=== PATIENT | female | born 1975 | race Caucasian/White ===

== ENCOUNTER 2017-09-13 05:29 | Inpatient (IN) | payer OTHER ==
[~2017-09-13] VITALS: Ht 170.2 cm; Wt 108.9 kg
--- NOTE | 2017-09-13 05:49 | ED GI/GU/ABDOMINAL COMPLAINT ---
History of Present Illness General Chief Complaint: Abdominal Pain/Flank Pain Stated Complaint: ABD PAIN X FEW WEEKS Source: patient Exam Limitations: no limitations Reconcile Medications No Known Home Medications Triage Note: PT REPORTS LOWER ABD PAIN FOR THE PAST WEEK. PT DENIES V/D BUT REPORTS NAUSEA THIS MORNING. PT STATES SHE HASNT HAD A NORMAL BM IN ABOUT A WEEK, " I WENT ALITTLE YESTERDAY". Triage Nurses Notes Reviewed? yes ? n Is pt currently ? No Onset: Gradual Duration: day(s):, waxing and waning Timing: recent history Quality/Severity: lower abdominal cramping and sharp pain Location: left lower quadrant, right lower quadrant Radiation: no radiation Activities at Onset: none Prior Abdominal Problems: none Modifying Factors: Worsens With: palpation. Associated Symptoms: abdominal pain, nausea/vomiting HPI: 42 yo woman presents with 7 days right and left lower quadrant pain, intermittent and fluctuating, associated with mild nausea, without vomiting, diarrhea, dysuria, vaginal discharge. She is otherwise well. (Aden STAPLES,Angel Luis Patel) Vital Signs & Intake/Output Vital Signs & Intake/Output Vital Signs Date Time Temp Pulse Resp B/P B/P Pulse O2 O2 Flow FiO2 Mean Ox Delivery Rate 09/14 2332 99.6 09/14 2328 99.6 09/14 2229 101.1 09/14 2207 101.1 99 20 140/70 93 09/14 1647 100.4 79 18 120/78 98 Room Air 09/14 1444 99.7 98 20 100/60 95 Room Air 09/14 0552 99.6 78 20 120/82 96 Room Air ED Intake and Output 09/15 0000 09/14 1200 Intake Total 1180 600 Output Total Balance 1180 600 Intake, Oral 1180 600 Number 3 Bowel Movements Allergies Coded Allergies: oxycodone (NAUSEA 09/13/17) (Donovan Ruano DO) Past History Travel History Traveled to [place] past 21 day No Medical History Any Pertinent Medical History? 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 No (Aden STAPLES,Angel Luis Patel) Review of Systems Review of Systems Constitutional: Reports: no symptoms. EENTM: Reports: no symptoms. Respiratory: Reports: no symptoms. Cardiovascular: Reports: no symptoms. GI: Reports: no symptoms. Genitourinary: Reports: no symptoms. Musculoskeletal: Reports: no symptoms. Skin: Reports: no symptoms. Neurological/Psychological: Reports: no symptoms. Hematologic/Endocrine: Reports: no symptoms. Immunologic/Allergic: Reports: no symptoms. All Other Systems: Reviewed and Negative (Angel Luis Samaniego MD) Physical Exam Physical Exam General Appearance: well developed/nourished, mild distress Head: atraumatic, normal appearance Eyes: Bilateral: normal appearance. Ears, Nose, Throat, Mouth: hearing grossly normal, moist mucous membrane Neck: normal inspection, supple, full range of motion Respiratory: normal breath sounds, chest non-tender, no respiratory distress, quiet respiration, lungs clear Cardiovascular: regular rate/rhythm Gastrointestinal: normal bowel sounds, soft, right and left lower quadrant tenderness to palpation. no rebound. no guarding. Back: normal inspection Extremities: normal range of motion Neurologic/Psych: no motor/sensory deficits, awake, alert, oriented x 3 Skin: intact, normal color, warm/dry (Aden STAPLES,Angel Luis Patel) Core Measures ACS in differential dx? No Sepsis Present: No Sepsis Focused Exam Completed? Yes (Donovan Ruano DO) Progress Differential Diagnosis: diverticulitis vs other. Initial ED EKG: nsr, inferior q waves. (Aden STAPLES,Angel Luis Patel) Plan of Care: Orders Procedure Date/time Status Nothing by Mouth 09/15 B Active CBC WITHOUT DIFFERENTIAL 09/15 0600 Active Regular Diet 09/14 D Complete PATHOLOGY SPECIMEN 09/14 1545 Active BLOOD CULTURE 09/14 1238 Active CANCER ANTIGEN 09/14 0600 Active Lab Add-on Test 09/14 UNK Active Diet Message 09/14 UNK Active Current Medications Sig/Leonel Start time Last Medication Dose Stop Time Status Admin Sodium Chloride 1,000 ML Q20H 09/15 0000 AC 09/14 (Half Normal Saline) 09/15 1959 2316 Acetaminophen 650 MG Q6P PRN 09/14 2230 AC 09/14 (Tylenol) 2229 Morphine Sulfate 2 MG Q4P PRN 09/13 1915 AC 09/14 (MORPHINE SULFATE) 1643 Dicyclomine HCl 20 MG 4 TIMES/DAY PRN 09/13 1745 AC (Bentyl) Ibuprofen 600 MG Q6P PRN 09/13 1345 AC 09/14 (Motrin) 2022 Laboratory Tests 09/14/17 0745: Anion Gap 11, Estimated GFR > 60, BUN/Creatinine Ratio 8.8, CBC w Diff NO MAN DIFF REQ, RBC 4.28, MCV 85.5, MCH 28.3, MCHC 33.0, RDW 15.0 H, MPV 9.3, Gran % 75.2, Lymphocytes % 20.8, Monocytes % 3.8, Eosinophils % 0.1, Basophils % 0.1, Absolute Granulocytes 7.1 H, Absolute Lymphocytes 2.0, Absolute Monocytes 0.4, Absolute Eosinophils 0, Absolute Basophils 0 09/14/17 0600: Carcinoembryonic Ag 2.0, CA 125 Antigen Pending Microbiology 09/14 2214 BLOOD: Blood Culture - CAN Cancelled: Cancelled via OE: Per Decision 09/14 221 BLOOD: Blood Culture - CAN Cancelled: Cancelled via OE: Per Decision 09/14 1655 BLOOD: Blood Culture - RECD 09/14 1254 BLOOD: Blood Culture - RECD Comments: I assumed care of this patient at the time of shift change from Dr. Samaniego. At that time, we were awaiting CT scan results. The patient's CT showed abnormalities in the right lower quadrant as outlined separately, as well as uterine enlargement. I spoke with Dr. Goldstein from surgery who recommended pelvic ultrasound and both GI and gynecology consultation given that he was not fully concerned that the appendix was the etiology. Ultrasound showed a 4.3 cm endometrial stripe, raising concern for endometrial malignancy versus other pathology. I discussed this with Dr. Navarro from gynecology who agreed the patient will need a D&C and histology. I finally spoke with Dr. Arias from GI who stated the patient will need a colonoscopy within the next 48 hours. The patient was uncomfortable returning home so she was hospitalized for continuation of this workup. Hemodynamically stable at the time of hospitalization. (Donovan Ruano DO) Departure Departure Condition: Stable Referrals: Deep STAPLES,Tomas Bonilla (PCP/Family) Departure Forms: Customer Survey General Discharge Information Prescriptions: Current Visit Scripts No Known Home Medications PA/KILN TRANSFER OPERATOR Co-Sign Statement Statement: ED Attending supervision documentation- [] I saw and evaluated the patient. I have also reviewed all the pertinent lab results and diagnostic results. I agree with the findings and the plan of care as documented in the PA's/KILN TRANSFER OPERATOR's documentation. [] I have reviewed the ED Record and agree with the PA's/KILN TRANSFER OPERATOR's documentation. [] Additions or exceptions (if any) to the PAs/KILN TRANSFER OPERATOR's note and plan are summarized below: [] (Aden STAPLES,Angel Luis Patel) Departure Disposition: STILL A PATIENT Clinical Impression Primary Impression: Abdominal mass Qualifiers: Abdominal location: right lower quadrant Qualified Code: R19.03 - Right lower quadrant abdominal swelling, mass and lump Admission Note Spoke With: Ang Sterling MD Documentation of Exam: Documentation of any treatments & extenuating circumstances including Concerns Regarding Discharge (functional status, medication knowledge or non-compliance, living conditions, etc.) that warrant an admission rather than observation: Patient's underlying medical condition and has not been reliably determined. She has consultation is pending from [facility] urology, obstetrics, and surgery for possible acute intra-abdominal pathology versus malignancy versus other possibilities. The patient's pain was refractory to several dosages of intravenous analgesics here in the ED and thus I feel that hospitalization is warranted over continuation of the workup in the outpatient setting which could inappropriately delay care. Hospitalized in hemodynamically stable condition for further workup. (Donovan Ruano DO)
[2017-09-13 06:16] LABS: ABSOLUTE BASOPHIL COUNT 0 /CUMM (0.0-0.2); ABSOLUTE EOSINOPHIL COUNT 0.1 /CUMM (0.0-0.7); ABSOLUTE GRANULOCYTE CT 5.9 /CUMM (1.4-6.5); ABSOLUTE LYMPH COUNT 2.7 /CUMM (1.2-3.4); ABSOLUTE MONOCYTE COUNT 0.4 /CUMM (0.10-0.60); BASOPHIL % 0.4 % (0.0-2.0); EOSINOPHIL % 1.1 % (0-5); GRANULOCYTE % 65.2 % (42.2-75.2); MEAN CORPUSCULAR HGB 28.1 PG (27.0-31.0); MEAN CORPUSCULAR VOLUME 84.9 FL (81.0-99.0); MEAN PLATELET VOLUME 8.9 FL (7.4-10.4); PLATELET COUNT 341 /CUMM (130-400); RBC DISTRIBUTION WIDTH 14.8 % (11.5-14.5); RED BLOOD CELL CT 4.94 /CUMM (4.20-5.40); WHITE BLOOD CELL COUNT 9.1 /CUMM (4.8-10.8)
--- NOTE | 2017-09-13 07:38 | CT SCAN REPORT ---
EXAMINATION: CT ABDOMEN AND PELVIS WITHOUT CONTRAST CLINICAL INFORMATION: Lower quadrant pain COMPARISON: CT abdomen and pelvis most recent prior dated 05/06/2007 TECHNIQUE: Multidetector volumetric imaging was performed from the superior aspect of the liver through the pubic symphysis. Sagittal and coronal reformatted images were obtained on the technologist's workstation. DLP: 1056.52 mGy-cm FINDINGS: LUNG BASES: The visualized lung bases are unremarkable. Epicardiac lymph nodes noted in the right epicardiac fat. Larger lymph node measures 0.8 cm in short axis (series 2 image 15) LIVER, GALLBLADDER, AND BILIARY TREE: No focal hepatic abnormality on the noncontrast images. Status post cholecystectomy. No gross biliary ductal dilatation. PANCREAS: Unremarkable. SPLEEN: Unremarkable. ADRENAL GLANDS: Unremarkable. KIDNEYS AND URETERS: The kidneys are normal in size, shape, and attenuation. Slightly malrotated left kidney. No hydronephrosis, hydroureter, or calculi seen. No perinephric stranding. BLADDER: Unremarkable. GASTROINTESTINAL TRACT: Abnormal low-attenuation mass with internal peripheral calcification measuring approximately 4.3 x 3.6 x 4.3 cm is noted closely approximated to the somewhat prominent appendix. There is soft tissue stranding surrounding the lesion and the adjacent prominent appendix. Nonobstructive bowel gas pattern. This abnormal soft tissue mass was not seen on the prior examination. ABDOMINAL WALL: No significant hernia is appreciated. LYMPH NODES: Normal. VASCULAR: Unremarkable. PELVIC VISCERA: Enlarged uterus measuring 15.3 x 11 x 12 cm. This represents an interval change since CT scan dated 05/06/2007. Unremarkable left ovary. Right ovary likely abutting the body of the uterus. Assessment is more limited. Stranding and trace fluid along the anteroinferior aspect of the uterus. OSSEOUS STRUCTURES: No acute osseous abnormality. Mild degenerative changes noted in the spine. IMPRESSION: 1. Mildly prominent appendix with adjacent slightly low attenuation complex mass with internal peripherally located calcification measuring approximately 4.3 x 3.6 x 4.3 cm. Stranding and edema surrounding the mass and adjacent slightly prominent appendix. Differential possibility includes appendiceal mucocele. Stranding of the surrounding fat may be secondary to mucocele infiltration or associated adjacent appendicitis. Clinical and laboratory correlation recommended. 2. Enlarged uterus. Adjacent trace fluid and edema. CAB DRIVER correlation and pelvic ultrasound recommended. Findings were discussed with Dr. Ruano at 7:30 AM on 09/13/2017.
--- NOTE | 2017-09-13 09:55 | ULTRASOUND REPORT ---
EXAMINATION: ULTRASOUND OF THE PELVIS CLINICAL INFORMATION: Uterine mass. Pelvic pain. Patient states long heavy periods. History of D\T\C in the past. Family history of ovarian cancer. COMPARISON: CT scan of the abdomen and pelvis dated 09/13/2017 and 05/06/2007. TECHNIQUE: Transabdominal and transvaginal pelvic ultrasound. A transvaginal study was performed in addition to the transabdominal study which did not yield an adequate examination of the uterus and ovaries due to superimposed distended gas-filled loops of bowel. FINDINGS: Uterus: The uterus is anteverted and enlarged, measuring approximately 14.8 x 10.1 x 12.4 cm. The endometrial stripe thickness is abnormal, measuring up to 4.4 cm in thickness. There is a 2.0 x 2.4 x 2.6 cm heterogeneously echogenic mass seen in the lower uterine segment within the endometrium, perhaps representing a discrete endometrial polyp. No endometrial free fluid is seen. The cervical length is normal measuring 3.0 cm. Ovaries: The ovaries bilaterally are poorly visualized due to the high pelvic location and underdistention of the bladder. The ovaries are seen adjacent to the uterine fundus and appear grossly normal with several small follicles seen. The right ovary measures 3.3 x 2.4 x 2.3 cm and the left ovary measures 3.6 x 1.8 x 1.8 cm. There is vascular flow to both ovaries, though poorly assessed on transabdominal scan. Other: In the right lower quadrant, lateral to the right uterine fundus, there is a ill-defined mass with shadowing seen. In correlating with the CT scan, there is a 4.1 x 4.3 x 3.7 cm solid mass with coarse calcifications seen adjacent to the appendix, possibly representing a partially calcified mucocele versus other mass, including neoplastic processes, such as carcinoid tumor. There is a second mass seen posterior to the cervix and lower uterine segment, erroneously labeled on the images as left ovary, measuring 3.2 x 2.7 x 2.2 cm and demonstrating arterial and venous flow. This corresponds to a solid appearing mass in the lower pelvis seen on CT scan, inseparable from the rectosigmoid colon. This is suspicious for a neoplastic process. Trace amount of free fluid is seen around this mass. IMPRESSION: 1. Difficult exam due to enlarged uterus extending beyond the range of the transvaginal probe and due to underdistention of the bladder, which limits transabdominal assessment. 2. There is abnormal diffuse thickening of the endometrial stripe with question of an endometrial mass in the lower uterine segment. Consider further assessment with MRI scan versus biopsy procedure/D\T\C to evaluate these findings further. Differential possibilities include prominent hyperplastic endometrium and endometrial polyp versus endometrial cancer. 3. Ovaries bilaterally poorly visualized but grossly normal in appearance. 4. Large masses are seen in the pelvis, one located posterior to the lower uterine segment and the other in the right lower quadrant, corresponding to the soft tissue masses seen on CT scan. Findings are suspicious for a neoplastic process, such as carcinoid tumor, gastrointestinal stromal tumor, mesenteric fibromatosis, sarcoma, or lymphoma. Benign entities such as inflammatory pseudotumor could be considered as well. Findings discussed with Dr. Donovan Ruano 09/13/2017, 9:25 AM.
--- NOTE | 2017-09-13 14:06 | Cons- General Surgery ---
General Information and HPI Consulting Request Date of Consult: 09/13/17 Requested By: Reason for Consult: right lower quadrant mass Source of Information: patient Exam Limitations: no limitations History of Present Illness: This 42 year old female with no reported past medical history presents with one week history of abdominal discomfort. She reports mostly left lower abdominal pain, associated with slight decreased appetite and nausea. She denies vomiting. Also one week history of constipation, which she feels improved slightly after miralax. Denies urinary symptoms. No weight loss history. No fevers, chills, or sweats. No shortness of breath. No chest pains. No dizziness. No recent illnesses. 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 Surgical History Pertinent Surgical History: cholecystectomy Family History Relations & Conditions If Any: SISTER Cervical cancer MOTHER FH: diabetes mellitus Psychosocial History Services at Home: NONE Smoking Status: Current Everyday Smoker (1/2 pack per day x 30 years) ETOH Use: occasional use Illicit Drug Use: denies illicit drug use Employment History Employment: Employed Review of Systems Review of Systems: admits: abdominal discomfort, nausea, constipation denies: fevers/chills/sweats, dizziness, shortness of breath, chest pains, dysuria Exam & Diagnostic Data Vital Signs and I&O Vital Signs Date Time Temp Pulse Resp B/P B/P Pulse O2 O2 Flow FiO2 Mean Ox Delivery Rate 09/13 1134 99.1 80 18 148/76 99 Room Air 09/13 0925 98.2 82 18 145/77 97 Room Air 09/13 0537 98.7 77 20 164/110 98 Room Air Intake & Output 09/13 1600 09/13 0800 09/13 0000 09/12 1600 09/12 0800 09/12 0000 Intake Total 1000 Output Total Balance 1000 Intake, IV 1000 Patient 240 lb Weight Weight Reported by Patient Measurement Method Physical Exam: General - alert & oriented x 3. comfortable. no acute distress. Lungs - clear bilaterally. no w/r/r. Cardiac - s1s2. reg. Abdomen - obese. soft. mostly left lower abdominal discomfort, but also with suprapubic and right lower quadrant tenderness. no peritoneal signs. Extremities - warm bilaterally. no c/c/e. calves soft and nontender b/l. nvi. Neuro - speech smooth and coordinated. no focal deficits. Last 24 Hours of Labs: Laboratory Tests 09/13 09/13 0829 0605 Chemistry Total Beta HCG (NEGATIVE) NEGATIVE Urines Urinalysis LIGHT H Urine Color (YEL,AMB,STR) YEL Urine Clarity (CLEAR) HAZY H Urine pH (5.0 - 8.0) 6.0 Ur Specific [place] (1.001 - 1.035) 1.025 Urine Protein (NEG,<30 MG/DL) 30 H Urine Ketones (NEG) NEG Urine Nitrite (NEG) NEG Urine Bilirubin (NEG) NEG Urine Urobilinogen (0.1 - 1.0 EU/dl) 0.2 Ur Leukocyte Esterase (NEG) SMALL H Ur Microscopic SEDIMENT EXAMINED Urine RBC (0 - 5 /HPF) 25-50 H Urine WBC (0 - 2 /HPF) 50-75 H Ur Epithelial Cells (NONE,FEW) FEW Urine Bacteria (NEG/NONE) FEW H Granular Casts (NONE /LPF) RARE H Urine Mucus (FEW,NONE) FEW Urine Hemoglobin (NEG) LARGE H Urine Glucose (N MG/DL) NEG 09/13 06 Chemistry Sodium (137 - 145 mmol/L) 144 Potassium (3.5 - 5.1 mmol/L) 4.0 Chloride (98 - 107 mmol/L) 103 Carbon Dioxide (22 - 30 mmol/L) 27 Anion Gap (5 - 16) 14 BUN (7 - 17 mg/dL) 9 Creatinine (0.5 - 1.0 mg/dL) 0.8 Estimated GFR (>60 ml/min) > 60 BUN/Creatinine Ratio (7 - 25 %) 11.3 Glucose (65 - 99 mg/dL) 127 H Calcium (8.4 - 10.2 mg/dL) 9.6 Total Bilirubin (0.2 - 1.3 mg/dL) 0.5 Direct Bilirubin (< 0.4 mg/dL) 0.2 AST (14 - 36 U/L) 21 ALT (9 - 52 U/L) 27 Alkaline Phosphatase (<127 U/L) 82 Troponin I (< 0.11 ng/ml) < 0.01 Total Protein (6.3 - 8.2 g/dL) 7.0 Albumin (3.5 - 5.0 g/dL) 4.3 Amylase (30 - 110 U/L) 46 Lipase (23 - 300 U/L) 86 Hematology CBC w Diff NO MAN DIFF REQ WBC (4.8 - 10.8 /CUMM) 9.1 RBC (4.20 - 5.40 /CUMM) 4.94 Hgb (12.0 - 16.0 G/DL) 13.9 Hct (37 - 47 %) 42.0 MCV (81.0 - 99.0 FL) 84.9 MCH (27.0 - 31.0 PG) 28.1 MCHC (33.0 - 37.0 G/DL) 33.0 RDW (11.5 - 14.5 %) 14.8 H Plt Count (130 - 400 /CUMM) 341 MPV (7.4 - 10.4 FL) 8.9 Gran % (42.2 - 75.2 %) 65.2 Lymphocytes % (20.5 - 51.1 %) 29.3 Monocytes % (1.7 - 9.3 %) 4.0 Eosinophils % (0 - 5 %) 1.1 Basophils % (0.0 - 2.0 %) 0.4 Absolute Granulocytes (1.4 - 6.5 /CUMM) 5.9 Absolute Lymphocytes (1.2 - 3.4 /CUMM) 2.7 Absolute Monocytes (0.10 - 0.60 /CUMM) 0.4 Absolute Eosinophils (0.0 - 0.7 /CUMM) 0.1 Absolute Basophils (0.0 - 0.2 /CUMM) 0 Imaging Results: EXAM TYPE: CAT - CT ABD & PELVIS W/O IV CONTRAS EXAMINATION: CT ABDOMEN AND PELVIS WITHOUT CONTRAST CLINICAL INFORMATION: Lower quadrant pain COMPARISON: CT abdomen and pelvis most recent prior dated 05/06/2007 TECHNIQUE: Multidetector volumetric imaging was performed from the superior aspect of the liver through the pubic symphysis. Sagittal and coronal reformatted images were obtained on the technologist's workstation. DLP: 1056.52 mGy-cm FINDINGS: LUNG BASES: The visualized lung bases are unremarkable. Epicardiac lymph nodes noted in the right epicardiac fat. Larger lymph node measures 0.8 cm in short axis (series 2 image 15) LIVER, GALLBLADDER, AND BILIARY TREE: No focal hepatic abnormality on the noncontrast images. Status post cholecystectomy. No gross biliary ductal dilatation. PANCREAS: Unremarkable. SPLEEN: Unremarkable. ADRENAL GLANDS: Unremarkable. KIDNEYS AND URETERS: The kidneys are normal in size, shape, and attenuation. Slightly malrotated left kidney. No hydronephrosis, hydroureter, or calculi seen. No perinephric stranding. BLADDER: Unremarkable. GASTROINTESTINAL TRACT: Abnormal low-attenuation mass with internal peripheral calcification measuring approximately 4.3 x 3.6 x 4.3 cm is noted closely approximated to the somewhat prominent appendix. There is soft tissue stranding surrounding the lesion and the adjacent prominent appendix. Nonobstructive bowel gas pattern. This abnormal soft tissue mass was not seen on the prior examination. ABDOMINAL WALL: No significant hernia is appreciated. LYMPH NODES: Normal. VASCULAR: Unremarkable. PELVIC VISCERA: Enlarged uterus measuring 15.3 x 11 x 12 cm. This represents an interval change since CT scan dated 05/06/2007. Unremarkable left ovary. Right ovary likely abutting the body of the uterus. Assessment is more limited. Stranding and trace fluid along the anteroinferior aspect of the uterus. OSSEOUS STRUCTURES: No acute osseous abnormality. Mild degenerative changes noted in the spine. IMPRESSION: 1. Mildly prominent appendix with adjacent slightly low attenuation complex mass with internal peripherally located calcification measuring approximately 4.3 x 3.6 x 4.3 cm. Stranding and edema surrounding the mass and adjacent slightly prominent appendix. Differential possibility includes appendiceal mucocele. Stranding of the surrounding fat may be secondary to mucocele infiltration or associated adjacent appendicitis. Clinical and laboratory correlation recommended. 2. Enlarged uterus. Adjacent trace fluid and edema. F[employer]ES correlation and pelvic ultrasound recommended. Findings were discussed with Dr. Ruano at 7:30 AM on 09/13/2017. DICTATED BY: Nkechi Ramirez MD DATE/TIME DICTATED:09/13/17703 FLYING I INSTRUCTOR:LEEANNA DATE/TIME TRANSCRIBED:09/13/17703 Other Results: EXAMINATION: ULTRASOUND OF THE PELVIS CLINICAL INFORMATION: Uterine mass. Pelvic pain. Patient states long heavy periods. History of D\T\C in the past. Family history of ovarian cancer. COMPARISON: CT scan of the abdomen and pelvis dated 09/13/2017 and 05/06/2007. TECHNIQUE: Transabdominal and transvaginal pelvic ultrasound. A transvaginal study was performed in addition to the transabdominal study which did not yield an adequate examination of the uterus and ovaries due to superimposed distended gas-filled loops of bowel. FINDINGS: Uterus: The uterus is anteverted and enlarged, measuring approximately 14.8 x 10.1 x 12.4 cm. The endometrial stripe thickness is abnormal, measuring up to 4.4 cm in thickness. There is a 2.0 x 2.4 x 2.6 cm heterogeneously echogenic mass seen in the lower uterine segment within the endometrium, perhaps representing a discrete endometrial polyp. No endometrial free fluid is seen. The cervical length is normal measuring 3.0 cm. Ovaries: The ovaries bilaterally are poorly visualized due to the high pelvic location and underdistention of the bladder. The ovaries are seen adjacent to the uterine fundus and appear grossly normal with several small follicles seen. The right ovary measures 3.3 x 2.4 x 2.3 cm and the left ovary measures 3.6 x 1.8 x 1.8 cm. There is vascular flow to both ovaries, though poorly assessed on transabdominal scan. Other: In the right lower quadrant, lateral to the right uterine fundus, there is a ill-defined mass with shadowing seen. In correlating with the CT scan, there is a 4.1 x 4.3 x 3.7 cm solid mass with coarse calcifications seen adjacent to the appendix, possibly representing a partially calcified mucocele versus other mass, including neoplastic processes, such as carcinoid tumor. There is a second mass seen posterior to the cervix and lower uterine segment, erroneously labeled on the images as left ovary, measuring 3.2 x 2.7 x 2.2 cm and demonstrating arterial and venous flow. This corresponds to a solid appearing mass in the lower pelvis seen on CT scan, inseparable from the rectosigmoid colon. This is suspicious for a neoplastic process. Trace amount of free fluid is seen around this mass. IMPRESSION: 1. Difficult exam due to enlarged uterus extending beyond the range of the transvaginal probe and due to underdistention of the bladder, which limits transabdominal assessment. 2. There is abnormal diffuse thickening of the endometrial stripe with question of an endometrial mass in the lower uterine segment. Consider further assessment with MRI scan versus biopsy procedure/D\T\C to evaluate these findings further. Differential possibilities include prominent hyperplastic endometrium and endometrial polyp versus endometrial cancer. 3. Ovaries bilaterally poorly visualized but grossly normal in appearance. 4. Large masses are seen in the pelvis, one located posterior to the lower uterine segment and the other in the right lower quadrant, corresponding to the soft tissue masses seen on CT scan. Findings are suspicious for a neoplastic process, such as carcinoid tumor, gastrointestinal stromal tumor, mesenteric fibromatosis, sarcoma, or lymphoma. Benign entities such as inflammatory pseudotumor could be considered as well. Findings discussed with Dr. Donovan Ruano 09/13/2017, 9:25 AM. DICTATED BY: Prerna Florian MD DATE/TIME DICTATED:09/13/17841 FLYING I INSTRUCTOR:LEEANNA DATE/TIME TRANSCRIBED:09/13/17841 Assessment/Plan Assessment/Plan This 42 year old female with no significant past medical history presents with abdominal pain and imaging showing right lower quadrant mass, with differential including appendiceal mucocele and pelvic masses by ultrasound admission to hospitalist GI consult, with likely plans for colonscopy [employer] consult for pelvic masses seen on ultrasound surgical plan to be further defined pending above will d/w Copies To: Deep STAPLES,Tomas Bonilla Consult Acknowledgment - Thank you for your consult request.
--- NOTE | 2017-09-13 14:56 | PN- Att Addend ---
Attending Addendum Attending Brief Note Patient seen and examined in the emergency room. Plan of care discussed with the medical team, emergency room physician and the patient. Patient's was at the bedside. Available lab work and radiology test reports were reviewed. In summary this is a 42-year-old the moderately obese female with history of heavy periods for past several months who has now developed the left lower and suprapubic the abdominal pain for past 10 days. She is currently having her periods which are again heavy. Patient denies any recent nausea vomiting fever chills coughing or difficulty breathing. Family history is unremarkable for any cancer. Exam: General: Patient awake alert oriented without any distress; Maller rash is noted CVS: S1 plus S2 without any murmur or gallops Chest: Few scattered crepitation without any wheeze. There is no respiratory distress. 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 without any focal neuro deficit and follows commands appropriately Extremities: No edema; no clubbing or cyanosis noted Current Medications Sig/Leonel Start time Last Medication Dose Route Stop Time Status Admin Acetaminophen 0 .STK-MED ONE 09/13 601 DC IV Acetaminophen 1,000 MG ONCE ONE 09/13 599 DC 09/13 N/A 1 UNIT IV 09/13 0614 0610 Enoxaparin Sodium 40 MG DAILY 09/14 899 CAN SC Ibuprofen 600 MG Q6P PRN 09/13 1345 AC PO Ketorolac 0 .STK-MED ONE 09/13 601 DC Tromethamine IM Ketorolac 30 MG ONCE ONE 09/13 599 DC 09/13 Tromethamine IV 09/13 0601 0610 Morphine Sulfate 2 MG Q4P PRN 09/13 1345 AC IV Morphine Sulfate 0 .STK-MED ONE 09/13 930 DC .ROUTE Morphine Sulfate 6 MG ONCE ONE 09/13 929 DC 09/13 IV 09/13 930 0931 Ondansetron HCl 0 .STK-MED ONE 09/13 930 DC .ROUTE Ondansetron HCl 4 MG ONCE ONE 09/13 929 DC 09/13 IV 09/13 0831 0931 Ondansetron HCl 0 .STK-MED ONE 09/13 601 DC .ROUTE Ondansetron HCl 4 MG ONCE ONE 09/13 599 DC 09/13 IV 09/13 0601 0610 Sodium Chloride 1,000 ML BOLUS ONE 09/13 06 DC 09/13 IV 09/13 0659 0610 Laboratory Tests 09/13/17 0829: Urinalysis LIGHT H, Urine Color YEL, Urine Clarity HAZY H, Urine pH 6.0, Ur Specific [place] 1.025, Urine Protein 30 H, Urine Ketones NEG, Urine Nitrite NEG, Urine Bilirubin NEG, Urine Urobilinogen 0.2, Ur Leukocyte Esterase SMALL H , Ur Microscopic SEDIMENT EXAMINED, Urine RBC 25-50 H, Urine WBC 50-75 H, Ur Epithelial Cells FEW, Urine Bacteria FEW H, Granular Casts RARE H, Urine Mucus FEW, Urine Hemoglobin LARGE H, Urine Glucose NEG 09/13/17 06: Total Beta HCG NEGATIVE 09/13/17604: Anion Gap 14, Estimated GFR > 60, BUN/Creatinine Ratio 11.3, Glucose 127 H, Calcium 9.6, Total Bilirubin 0.5, Direct Bilirubin 0.2, AST 21, ALT 27, Alkaline Phosphatase 82, Troponin I < 0.01, Total Protein 7.0, Albumin 4.3, Amylase 46, Lipase 86, CBC w Diff NO MAN DIFF REQ, RBC 4.94, MCV 84.9, MCH 28.1, MCHC 33.0, RDW 14.8 H, MPV 8.9, Gran % 65.2, Lymphocytes % 29.3, Monocytes % 4.0, Eosinophils % 1.1, Basophils % 0.4, Absolute Granulocytes 5.9, Absolute Lymphocytes 2.7, Absolute Monocytes 0.4, Absolute Eosinophils 0.1, Absolute Basophils 0 Vital Signs Date Time Temp Pulse Resp B/P B/P Pulse O2 O2 Flow FiO2 Mean Ox Delivery Rate 09/13 1434 134/80 09/13 1420 98.9 91 18 178/84 97 Room Air 09/13 1134 99.1 80 18 148/76 99 Room Air 09/13 0925 98.2 82 18 145/77 97 Room Air 09/13 0537 98.7 77 20 164/110 98 Room Air Intake & Output 09/13 1600 09/13 0800 09/13 0000 Intake Total 1000 Output Total Balance 1000 Intake, IV 1000 Patient 240 lb Weight Weight Reported by Patient Measurement Method CT abd/pelvis 1. Mildly prominent appendix with adjacent slightly low attenuation complex mass with internal peripherally located calcification measuring approximately 4.3 x 3.6 x 4.3 cm. Stranding and edema surrounding the mass and adjacent slightly prominent appendix. Differential possibility includes appendiceal mucocele. Stranding of the surrounding fat may be secondary to mucocele infiltration or associated adjacent appendicitis. Clinical and laboratory correlation recommended. 2. Enlarged uterus. Adjacent trace fluid and edema. CERTIFIED CODER correlation and pelvic ultrasound recommended. US abd/pelvis 1. Difficult exam due to enlarged uterus extending beyond the range of the transvaginal probe and due to underdistention of the bladder, which limits transabdominal assessment. 2. There is abnormal diffuse thickening of the endometrial stripe with question of an endometrial mass in the lower uterine segment. Consider further assessment with MRI scan versus biopsy procedure/D\T\C to evaluate these findings further. Differential possibilities include prominent hyperplastic endometrium and endometrial polyp versus endometrial cancer. 3. Ovaries bilaterally poorly visualized but grossly normal in appearance. 4. Large masses are seen in the pelvis, one located posterior to the lower uterine segment and the other in the right lower quadrant, corresponding to the soft tissue masses seen on CT scan. Findings are suspicious for a neoplastic process, such as carcinoid tumor, gastrointestinal stromal tumor, mesenteric fibromatosis, sarcoma, or lymphoma. Benign entities such as inflammatory pseudotumor could be considered as well. Assessment * Lower abdominal pain and pelvic mass with enhance uterine strip- deferential included endometrial carcinoma, endometrial fibroid, ovarian mass versus appendiceal mucocyst. Need to rule out colonic malignancy. Other tumor such as lymphoma sarcoma will need to be excluded as well Plan * Admitted to medical floor * Pain control with Motrin when necessary * Repeat CBC to follow-up hemoglobin in a.m. 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
--- NOTE | 2017-09-13 14:56 | Admission Certification ---
Admission Certification Certification Statement - As attending physician, I certify that at the time of - admission, based on clinical presentation, severity of - symptoms, need for further diagnostic testing and - therapeutic interventions, and risk of adverse outcomes - without in-hospital treatment, in my clinical assessment, - this patient requires an acute hospital stay for a minimum - of two nights or longer. I have also considered psychsocial - factors such as support system, advanced age, financial - issues, cognitive issues, and failed out-patient treatments, - past re-admission history, safety of patient, and lack of - compliance as applicable. Specific rationale supporting this admission is: Pelvic mass and abdominal pain
--- NOTE | 2017-09-13 15:04 | History & Physical ---
[facility] 09/13/17 1501: General Information and HPI MD Statement: I have seen and personally examined ARGENTINA KENNY and documented this H&P. The patient is a 42 year old F who presented with a patient stated chief complaint of left lower abdominal pain for 1-1/2 week back []. Source of Information: patient, old records Exam Limitations: no limitations History of Present Illness: 42 YO F obese, smoker (1/2 pack/d for 30 yrs) with PMH menorrhagia status post D &C with hysteroscopy (2010), cholecystectomy and cervical spine surgery came to ED with chief complaint of left lower abdominal pain for last 1-1/2 week. Patient reported that she was in her usual state of health 1 and healthy back when she noticed continuous left lower abdominal pain, progressive, dull, 2/10, nonradiating and there is no relieving factor but increased with deep palpation of the belly. Patient reported that she always had heavy menstruation associated with dull lower abdominal cramps and it's usually goes away by itself but this time this pain didn't go away. She noticed that that pain was staying on the left side and it's continues even in the absence of menstruation. Patient also reported that she still has menstruation. Patient denied nausea, vomiting, shortness of breath, chest pain, palpitation, change in bowel movements, change in caliber of stool, blood in stool, blood in urine, dizziness, unintentional weight loss, loss of appetite, weakness, trauma to belly, fever, chills and dysuria. Patient also reported that she has constipation for last 1 week. Patient is but she is nulliparous and never used oral contraceptive pills. Patient reported that she has menorrhagia for last 7 years and her last thyroid function was checked 7 years back. She never had any mammogram. She is not seeing her chief chemist for last 6 years and her last Pap smear was done 6 years back. Patient didn't see her primary care physician for last 2 years. Patient reported that her mom and grandmom had diabetes but there is no history of malignancy or gynecological problem in the family. Last time patient was admitted in [facility] in 2010 due to menorrhagia and hysteroscopy with D&C was done at that point. Biopsy was taken and histopathology report showed endometrial polyp with complex hyperplasia without atypia and microglandular hyperplasia. ED course: Vitals: Temperature 98.7, pulse 77, respiratory rate 20, blood pressure 160/110, oxygen saturation 98% on room air Labs: WBC count 9.1, hemoglobin 13.9, hematocrit 42.0, platelet count 341, sodium 144, potassium 4.0, BUN 9, creatinine 0.8, glucose 127, BUN/creatinine ratio 11.3, anion gap 14, calcium 9.6, direct bilirubin 0.2, AST 21, ALT 27, alkaline phosphatase 82, troponin less than 0.01 Allergies/Medications Allergies: Coded Allergies: oxycodone (NAUSEA 09/13/17) Home Med list No Known Home Medications Past History Travel History Traveled to [place] past 21 day No Medical History Neurological: NONE EENT: NONE Cardiovascular: NONE Respiratory: NONE Gastrointestinal: NONE Hepatic: NONE Renal: NONE Musculoskeletal: NONE Psychiatric: NONE Endocrine: NONE Blood Disorders: NONE Cancer(s): NONE ALIGNER/Reproductive: NONE Surgical History Surgical History: cholecystectomy Past Family/Social History Family History Relations & Conditions if any SISTER Cervical cancer MOTHER FH: diabetes mellitus Psychosocial History Services at Home: NONE Smoking Status: Current Everyday Smoker (1/2 pack per day x 30 years) ETOH Use: occasional use Illicit Drug Use: denies illicit drug use Employment History Employment Employed Review of Systems Review of Systems Constitutional: Denies: chills, fever, weakness. EENTM: Reports: no symptoms. Cardiovascular: Denies: chest pain, orthopena, palpitations. Respiratory: Denies: cough, orthopnea, short of breath, sputum production. GI: Reports: abdominal pain, constipation. Denies: diarrhea, nausea, bloody stool, vomiting. Genitourinary: Denies: discharge, dysuria, frequency, hematuria, pain. Musculoskeletal: Reports: no symptoms. Neurological/Psychological: Reports: no symptoms. Exam & Diagnostic Data Last 24 Hrs of Vital Signs/I&O Vital Signs Date Time Temp Pulse Resp B/P B/P Pulse O2 O2 Flow FiO2 Mean Ox Delivery Rate 09/13 1434 134/80 09/13 1420 98.9 91 18 178/84 97 Room Air 09/13 1134 99.1 80 18 148/76 99 Room Air 09/13 0925 98.2 82 18 145/77 97 Room Air 09/13 0537 98.7 77 20 164/110 98 Room Air Intake & Output 09/13 1600 09/13 0800 09/13 0000 Intake Total 1000 Output Total Balance 1000 Intake, IV 1000 Patient 240 lb Weight Weight Reported by Patient Measurement Method Physical Exam General Appearance Alert, Oriented X3, Cooperative Skin No Rashes Skin Temp/Moisture Exam: Warm/Dry Sepsis Skin Exam (color): Normal for Ethnicity HEENT Atraumatic, PERRLA, EOMI Neck Supple Cardiovascular Normal S1, Normal S2 Lungs Clear to Auscultation, Normal Air Movement Abdomen Soft, Left lower abdomen deep tenderness Neurological Normal Speech, Strength at 5/5 X4 Ext, Normal Tone, Sensation Intact Extremities No Edema Assessment/Plan Assessment: 42 YO F obese, smoker (1/2 pack/d for 30 yrs) with PMH menorrhagia status post D &C with hysteroscopy (2010), cholecystectomy and cervical spine surgery came to ED with chief complaint of left lower abdominal pain for last 1-1/2 week. We will admit the patient on general medicine floor for following problems. Left lower abdominal pain: -Possibly due to constipation or menorrhagia. -On imaging study patient has pelvic masses on the right side could be appendicular mucocele, appendicular carcinoid tumor or mesenteric fibromatosis. -Patient also had degenerative ultrasound that showing endometrial thickness an endometrial polyp versus endometrial cancer -We will follow up gynecological recommendations, possible D&C and endometrial biopsy. -GI will to colonoscopy tomorrow -Patient will be nothing by mouth midnight. -We will follow surgery recommendations -Follow-up CBC for any drop in H&H considering her menorrhagia. -We will check CEA, CA 125 levels. -Abdominal spasmodic pain can be controlled with antispasmodic medication as recommended by GI. Smoking cessation: -Counseling for smoking cessation -Nicotine patch as needed Constipation: -Patient was complaining of constipation and she didn't have bowel movement for last 1 week. -Continue laxatives DVT prophylaxis: Mechanical and subcutaneous Lovenox CODE STATUS: Full code As Ranked By This Provider Problem List: 1. Menorrhagia 2. Abdominal mass Qualifiers Abdominal location: right lower quadrant Qualified Code: R19.03 - Right lower quadrant abdominal swelling, mass and lump 3. Abdominal pain Core Measures/Misc (01/10) Acute Coronary Syndrome ACS Diagnosis: No Congestive Heart Failure Congestive Heart Failure Diagnosis No Cerebrovascular Accident CVA/TIA Diagnosis: No VTE (View Protocol) VTE Risk Factors Smoker No Mechanical VTE Prophylaxis d/t N/A [facility] Ordered No VTE Pharm Prophylaxis d/t NA PharmProphylax ordered Sepsis (View protocol) Sepsis Present: Jaimie Reyes 09/13/17 1550: Resident Review Statement Resident Statement: examined this patient, discussed with internet sales director Other Findings: Patient is a 42-year-old obese woman with no significant past medical history presented to the ED for evaluation of persistent lower abdominal pain for the last 1-1/2 week. Patient mentioned that she usually gets abdominal cramps during her periods/ menses, that resolve afterwards. But this time at the time of her periods she noticed pain more over the left side. Periods lasted for 4 days but her abdominal discomfort persisted and started having another menstrural bleed 2 days after the resolution of the initial bleed. Abdominal pain is mostly in the lower left quadrant sharp in character and intermittent without any radiations associated with some nausea without any vomiting/diarrhea. She has been having constipation for the same duration of time. Denied any recent weight loss/ medication changes. Denies any fever or chills. Other review of system was negative for her. Patient mentioned that she always have a irregular menstrual cycles (menorrhagia )fusually has 2-3 times per month ,She was admitted to [facility] in 2010 due to menorrhagia , had hysteroscopy with D&C done at that time. Biopsy revealed endometrial polyp with complex hyperplasia without atypia and microglandular hyperplasia. She has been worked up for thyroid disease about 6-7 years ago. She hasn't seen a chief chemist for the last 6 years and didn't have a Pap smear for the same duration of time. Never had a mammogram done. She has last seen her primary care physician about 2 years ago. Patient is currently not getting any medications, never took OCPs. She is a nulliparous, denied any history of cancers in the family. She is a current every day smoker smokes half a pack for more than 30 years, occasional drinker. Vitals on admission were stable. Examination General Appearance: well developed/nourished, mild distress HEENT:PERRLA Neck: normal inspection, supple, full range of motion Respiratory: normal breath sounds, chest non-tender, no respiratory distress, quiet respiration, lungs clear Cardiovascular: regular rate/rhythm Gastrointestinal: normal bowel sounds, rebound tenderness involving the left lower quadrant Back: normal inspection Extremities: normal range of motion Neurologic/Psych: no motor/sensory deficits, awake, alert, oriented x 3. Pertinent labs on admission H&H stable no evidence of leukocytosis BEP normal CT abdomen and pelvis revealed 1. Mildly prominent appendix with adjacent slightly low attenuation complex mass with internal peripherally located calcification measuring approximately 4.3 x 3.6 x 4.3 cm. Stranding and edema surrounding the mass and adjacent slightly prominent appendix. Differential possibility includes appendiceal mucocele. Stranding of the surrounding fat may be secondary to mucocele infiltration or associated adjacent appendicitis. Clinical and laboratory correlation recommended. 2. Enlarged uterus. Adjacent trace fluid and edema. ALIGNER correlation and pelvic ultrasound recommended. Transvaginal ultrasound showed There is abnormal diffuse thickening of the endometrial stripe with question of an endometrial mass in the lower uterine segment. Consider further assessment with MRI scan versus biopsy procedure/D\T\C to evaluate these findings further. Differential possibilities include prominent hyperplastic endometrium and endometrial polyp versus endometrial cancer. 3. Ovaries bilaterally poorly visualized but grossly normal in appearance. 4. Large masses are seen in the pelvis, one located posterior to the lower uterine segment and the other in the right lower quadrant, corresponding to the soft tissue masses seen on CT scan. Findings are suspicious for a neoplastic process, such as carcinoid tumor, gastrointestinal stromal tumor, mesenteric fibromatosis, sarcoma, or lymphoma. Benign entities such as inflammatory pseudotumor could be considered as well. Assessment 1. Persistent left lower quadrant pain with CAT scan and transvaginal ultrasound findings suspicious of an underlying neoplastic process. 2. Diffuse thickening of endometrial wall with questionable mass in the lower uterine segment differentials include hyperplastic endometrium and endometrial polyp versus endometrial cancer. 3. Large masses within the pelvis(differentials include carcinoid tumor, gastrointestinal stromal tumor, mesenteric fibromatosis, sarcoma, or lymphoma) 4. Appendiceal mucocele. Plan * We will admit the patient GenMed floor * Adequate pain control with IV morphine and ibuprofen. * CAT scan and uterine ultrasound findings have been discussed with the patient in details, patient has been counseled and has been told that further workup and management will be done under GI, gynecology and surgery guidance. * Check thyroid function levels. * Gynecology has been informed patient will likely go for D&C tomorrow for endometrial biopsy. * GI has been consulted as well for possible colonoscopy in the morning. * Surgery is on board. * Watch for any hemodynamic instability. * Start senna S Colace and MiraLAX for constipation Current every day smoker * Nicotine patch Anticoagulation with Alps only, pending D&C and possible colonoscopy tomorrow Adequate pain control with morphine and ibuprofen Patient is full code
[2017-09-13 15:47] VITALS: BP 140/84
--- NOTE | 2017-09-13 16:34 | Cons- Gastroenterology ---
General Information and HPI Consulting Request Date of Consult: 09/13/17 Requested By: Donovan Ruano MD Reason for Consult: Abdominal pain, abnormal ct scan. Source of Information: patient Exam Limitations: no limitations History of Present Illness: Ms. Turner is a 42 year old female with no significant PMH who presented to last night with complaints of abdominal pain. She notes that over the past week and a half she has been having worsening lower abdominal pain which is crampy and was exacerbated today which is why she came to the ER. She notes that she has been constipated which is new for her and she has tried taking miralax without much benefit. She is without rectal bleeding. She is also without any pain with eating, heartburn, dysphagia or vomiting. The pain is not exacerbated by eating. In the ER she had a ct scan that was concerning for appendicitis, but also showed a mass like lesion of uncertain etiology so surgery recommended further work up before taking her to the OR. She has been hemodynamically stable and afebrile since presentation and has been getting narcotics for pain with only minimal relief leading her to be admitted for pain control and further work up. Allergies/Medications Allergies: Coded Allergies: oxycodone (NAUSEA 09/13/17) Home Med List: Acetaminophen (Tylenol) 325 MG TABLET 1-2 TAB PO Q6P PRN FEVER > 101 Ampicillin Sodium/Sulbactam Na (Unasyn 3 Gm Vial) 3 GRAM VIAL 1 Vial IV Q6 BACTEREMIA [Bentyl] 20 MG TAB 1 TAB PO 4 TIMES/DAY PRN ABDOMINAL PAIN Ibuprofen 600 MG TABLET 1 TAB PO TID PRN PAIN SCALE 4-6 (MODERATE) with food Morphine Sulfate 4 MG/ML VIAL 2 MG IV Q4P PRN PAIN SCALE 7-10 (SEVERE) Current Medications: Current Medications Sig/Leonel Start time Last Medication Dose Route Stop Time Status Admin Acetaminophen 0 .STK-MED ONE 09/13 601 DC IV Acetaminophen 1,000 MG ONCE ONE 09/13 599 DC 09/13 N/A 1 UNIT IV 09/13 613 0610 Ketorolac 0 .STK-MED ONE 09/13 601 DC Tromethamine IM Ketorolac 30 MG ONCE ONE 09/13 599 DC 09/13 Tromethamine IV 09/13 600 0610 Morphine Sulfate 0 .STK-MED ONE 09/13 930 DC .ROUTE Morphine Sulfate 6 MG ONCE ONE 09/13 929 DC 09/13 IV 09/13 0931 0931 Ondansetron HCl 0 .STK-MED ONE 09/13 09 DC .ROUTE Ondansetron HCl 4 MG ONCE ONE 09/13 0930 DC 09/13 IV 09/13 0931 0931 Ondansetron HCl 0 .STK-MED ONE 09/13 0602 DC .ROUTE Ondansetron HCl 4 MG ONCE ONE 09/13 0600 DC 09/13 IV 09/13 0601 0610 Sodium Chloride 1,000 ML BOLUS ONE 09/13 06 DC 09/13 IV 09/13 0659 0610 Past History Travel History Traveled to [place] past 21 day No Medical History Neurological: NONE EENT: NONE Cardiovascular: NONE Respiratory: NONE Gastrointestinal: NONE Hepatic: NONE Renal: NONE Musculoskeletal: NONE Psychiatric: NONE Endocrine: NONE Blood Disorders: NONE Cancer(s): NONE NAILHEAD OPERATOR/Reproductive: NONE Surgical History Surgical History: 1 Psychosocial History Services at Home: NONE ETOH Use: occasional use Illicit Drug Use: denies illicit drug use Review of Systems Review of Systems Constitutional: Denies: chills, diaphoresis, fever, malaise, weakness. EENTM: Denies: no symptoms. Cardiovascular: Denies: no symptoms. Respiratory: Denies: no symptoms. GI: Reports: see HPI. Genitourinary: Denies: no symptoms. Musculoskeletal: Denies: no symptoms. Skin: Denies: no symptoms. Neurological/Psychological: Denies: no symptoms. Hematologic/Endocrine: Denies: no symptoms. Immunologic/Allergic: Denies: no symptoms. All Other Systems: Reviewed and Negative Exam & Diagnostic Data Vital Signs and I&O Vital Signs Date Time Temp Pulse Resp B/P B/P Pulse O2 O2 Flow FiO2 Mean Ox Delivery Rate 09/13 1134 99.1 80 18 148/76 99 Room Air 09/13 0925 98.2 82 18 145/77 97 Room Air 09/13 0537 98.7 77 20 164/110 98 Room Air Intake & Output 09/13 1600 09/13 0400 09/12 1600 09/12 0400 09/11 1600 09/11 0400 Intake Total 1000 Output Total Balance 1000 Intake, IV 1000 Patient 240 lb Weight Weight Reported by Patient Measurement Method Physical Exam General Appearance: well developed/nourished, no apparent distress, alert, awake , mild distress Head: atraumatic, normal appearance Eyes: Bilateral: normal appearance. Ears, Nose, Throat: normal pharynx, normal ENT inspection Neck: normal inspection, supple, full range of motion Respiratory: normal breath sounds, chest non-tender, no respiratory distress Cardiovascular: regular rate/rhythm Gastrointestinal: normal bowel sounds, soft, tenderness Rectal: deferred Back: normal inspection, normal range of motion Extremities: normal inspection, no edema Skin: intact, normal color, warm/dry Results Pertinent Lab Results: Laboratory Tests 09/13 09/13 0829 0605 Chemistry Total Beta HCG (NEGATIVE) NEGATIVE Urines Urinalysis LIGHT H Urine Color (YEL,AMB,STR) YEL Urine Clarity (CLEAR) HAZY H Urine pH (5.0 - 8.0) 6.0 Ur Specific [place] (1.001 - 1.035) 1.025 Urine Protein (NEG,<30 MG/DL) 30 H Urine Ketones (NEG) NEG Urine Nitrite (NEG) NEG Urine Bilirubin (NEG) NEG Urine Urobilinogen (0.1 - 1.0 EU/dl) 0.2 Ur Leukocyte Esterase (NEG) SMALL H Ur Microscopic SEDIMENT EXAMINED Urine RBC (0 - 5 /HPF) 25-50 H Urine WBC (0 - 2 /HPF) 50-75 H Ur Epithelial Cells (NONE,FEW) FEW Urine Bacteria (NEG/NONE) FEW H Granular Casts (NONE /LPF) RARE H Urine Mucus (FEW,NONE) FEW Urine Hemoglobin (NEG) LARGE H Urine Glucose (N MG/DL) NEG 09/13 0605 Chemistry Sodium (137 - 145 mmol/L) 144 Potassium (3.5 - 5.1 mmol/L) 4.0 Chloride (98 - 107 mmol/L) 103 Carbon Dioxide (22 - 30 mmol/L) 27 Anion Gap (5 - 16) 14 BUN (7 - 17 mg/dL) 9 Creatinine (0.5 - 1.0 mg/dL) 0.8 Estimated GFR (>60 ml/min) > 60 BUN/Creatinine Ratio (7 - 25 %) 11.3 Glucose (65 - 99 mg/dL) 127 H Calcium (8.4 - 10.2 mg/dL) 9.6 Total Bilirubin (0.2 - 1.3 mg/dL) 0.5 Direct Bilirubin (< 0.4 mg/dL) 0.2 AST (14 - 36 U/L) 21 ALT (9 - 52 U/L) 27 Alkaline Phosphatase (<127 U/L) 82 Troponin I (< 0.11 ng/ml) < 0.01 Total Protein (6.3 - 8.2 g/dL) 7.0 Albumin (3.5 - 5.0 g/dL) 4.3 Amylase (30 - 110 U/L) 46 Lipase (23 - 300 U/L) 86 Hematology CBC w Diff NO MAN DIFF REQ WBC (4.8 - 10.8 /CUMM) 9.1 RBC (4.20 - 5.40 /CUMM) 4.94 Hgb (12.0 - 16.0 G/DL) 13.9 Hct (37 - 47 %) 42.0 MCV (81.0 - 99.0 FL) 84.9 MCH (27.0 - 31.0 PG) 28.1 MCHC (33.0 - 37.0 G/DL) 33.0 RDW (11.5 - 14.5 %) 14.8 H Plt Count (130 - 400 /CUMM) 341 MPV (7.4 - 10.4 FL) 8.9 Gran % (42.2 - 75.2 %) 65.2 Lymphocytes % (20.5 - 51.1 %) 29.3 Monocytes % (1.7 - 9.3 %) 4.0 Eosinophils % (0 - 5 %) 1.1 Basophils % (0.0 - 2.0 %) 0.4 Absolute Granulocytes (1.4 - 6.5 /CUMM) 5.9 Absolute Lymphocytes (1.2 - 3.4 /CUMM) 2.7 Absolute Monocytes (0.10 - 0.60 /CUMM) 0.4 Absolute Eosinophils (0.0 - 0.7 /CUMM) 0.1 Absolute Basophils (0.0 - 0.2 /CUMM) 0 Imaging/Other Studies: SERVICE DATE: 09/13/1750 EXAM TYPE: CAT - CT ABD & PELVIS W/O IV CONTRAS EXAMINATION: CT ABDOMEN AND PELVIS WITHOUT CONTRAST CLINICAL INFORMATION: Lower quadrant pain COMPARISON: CT abdomen and pelvis most recent prior dated 05/06/2007 TECHNIQUE: Multidetector volumetric imaging was performed from the superior aspect of the liver through the pubic symphysis. Sagittal and coronal reformatted images were obtained on the technologist's workstation. DLP: 1056.52 mGy-cm FINDINGS: LUNG BASES: The visualized lung bases are unremarkable. Epicardiac lymph nodes noted in the right epicardiac fat. Larger lymph node measures 0.8 cm in short axis (series 2 image 15) LIVER, GALLBLADDER, AND BILIARY TREE: No focal hepatic abnormality on the noncontrast images. Status post cholecystectomy. No gross biliary ductal dilatation. PANCREAS: Unremarkable. SPLEEN: Unremarkable. ADRENAL GLANDS: Unremarkable. KIDNEYS AND URETERS: The kidneys are normal in size, shape, and attenuation. Slightly malrotated left kidney. No hydronephrosis, hydroureter, or calculi seen. No perinephric stranding. BLADDER: Unremarkable. GASTROINTESTINAL TRACT: Abnormal low-attenuation mass with internal peripheral calcification measuring approximately 4.3 x 3.6 x 4.3 cm is noted closely approximated to the somewhat prominent appendix. There is soft tissue stranding surrounding the lesion and the adjacent prominent appendix. Nonobstructive bowel gas pattern. This abnormal soft tissue mass was not seen on the prior examination. ABDOMINAL WALL: No significant hernia is appreciated. LYMPH NODES: Normal. VASCULAR: Unremarkable. PELVIC VISCERA: Enlarged uterus measuring 15.3 x 11 x 12 cm. This represents an interval change since CT scan dated 05/06/2007. Unremarkable left ovary. Right ovary likely abutting the body of the uterus. Assessment is more limited. Stranding and trace fluid along the anteroinferior aspect of the uterus. OSSEOUS STRUCTURES: No acute osseous abnormality. Mild degenerative changes noted in the spine. IMPRESSION: 1. Mildly prominent appendix with adjacent slightly low attenuation complex mass with internal peripherally located calcification measuring approximately 4.3 x 3.6 x 4.3 cm. Stranding and edema surrounding the mass and adjacent slightly prominent appendix. Differential possibility includes appendiceal mucocele. Stranding of the surrounding fat may be secondary to mucocele infiltration or associated adjacent appendicitis. Clinical and laboratory correlation recommended. 2. Enlarged uterus. Adjacent trace fluid and edema. NAILHEAD OPERATOR correlation and pelvic ultrasound recommended. Assessment/Plan Assessment/Recommendations: Assessment: Ms. Turner is a 42 year old female with one week of lower abdominal pain of uncertain etiology, but I suspect that some of it may be from bowel spasm from constipation considering the location of her discomfort in the LLQ and new onset of constipation. Her ct scan shows a prominent appendix with an associated 4x4 mass like lesion which I'm not certain is the cause of her discomfort based on its location, but a colonoscopy is definitely indicated to make sure the lesion is not extending into the cecum and also to rule out colon cancer so I will attempt to do this tommorrow and will also hope that the bowel prep will improve her discomfort. As she also has some abnormalities on her transvaginal US it is also possible that she could be having a gynecological source of pain so she should be evaluated by gynecology as well to further assess for this. Recommendations: 1. Full liquid diet for now 2. Trial of anti-spasmodics as needed for lower abdominal cramping 3. Surgical and gynecology consults 4. After a liquid dinner would give 2 dulcolax tablets followed by 1/2 golytely tonight and another 1/2 of golytely in the am and she should be kept NPO after the bowel prep for a diagnostic colononoscopy to be done later in the day. I will continue to follow this patient and make further recommendations based on her clinical course, results of tomorrows colonoscopy and other specialists recommendations. Problem List: 1. Abdominal pain 2. Abdominal mass Copies To: [employer],Tomas Somers. Consult Acknowledgment - Thank you for your consult request.
--- NOTE | 2017-09-13 17:37 | PN- General Surgery ---
Surgical Brief Attending Note Brief Attending Note: Patient seen and examined, full consult in chart. LLQ on and off abdominal painfor a week and a half, no RLQ pain, Denies N/V/F/C, + constipation, no weight loss, felt like menstrual cramps. Tm 100.8 after admission VSS. Abd-soft , obese, +LLQ discomfort. Labs ok. CT scan ?mucocele?. Kofi shows enlarged uterus with suspicious findings and multiple pelvic masses. Clincally and radiographically appendicitis is highly unlikely, needs further work-up for pelvic pathology with GI/SPEED BELT SANDER, will await results of the work-up as patient may need a laparoscopy in the future for diagnostic or therapeutic purposes.
--- NOTE | 2017-09-13 19:01 | Cons- OBGYN ---
General Information and HPI Consulting Request Date of Consult: 09/13/17 Requested By: Jeffrey STAPLES,Shade Reason for Consult: abdominal pain, uterine mass Source of Information: patient Exam Limitations: no limitations History of Present Illness: 42yo c/o worsening abdominal pain x 1 wk. Pt thought was menstrual cramps but became more severe this morning, woke from sleep. No relief with NSAIDS. No N/V/D. +Constipation, last BM >1wk, and have recently been very small. No blood in stool. No F/C. No urinary symptoms. Reports 2yr h/o prologed, irregular menses, bleeding most days of the month, occasionally spotting mixed w / episodes of large clots. Last seen by tap grinder more than 6 yrs ago. Allergies/Medications Allergies: Coded Allergies: oxycodone (NAUSEA 09/13/17) Home Med List: No Known Home Medications Current Medications: Current Medications Sig/Leonel Start time Last Medication Dose Route Stop Time Status Admin Acetaminophen 650 MG ONCE ONE 09/13 1745 DC PO 09/13 174 Acetaminophen 0 .STK-MED ONE 09/13 06 DC IV Acetaminophen 1,000 MG ONCE ONE 09/13 0600 DC 09/13 N/A 1 UNIT IV 09/13 0614 0610 Dicyclomine HCl 20 MG 4 TIMES/DAY PRN 09/13 1745 AC PO Docusate Sodium 200 MG ONCE ONE 09/13 2000 AC PO 09/13 2000 Enoxaparin Sodium 40 MG DAILY 09/14 0900 CAN SC Ibuprofen 600 MG Q6P PRN 09/13 1345 AC PO Ketorolac 0 .STK-MED ONE 09/13 0602 DC Tromethamine IM Ketorolac 30 MG ONCE ONE 09/13 0600 DC 09/13 Tromethamine IV 09/13 0601 0610 Morphine Sulfate 0 .STK-MED ONE 09/13 1506 DC .ROUTE Morphine Sulfate 2 MG Q4P PRN 09/13 1345 AC 09/13 IV 1512 Morphine Sulfate 0 .STK-MED ONE 09/13 0931 DC .ROUTE Morphine Sulfate 6 MG ONCE ONE 09/13 0830 DC 09/13 IV 09/1331 Ondansetron HCl 0 .STK-MED ONE 09/13 930 DC .ROUTE Ondansetron HCl 4 MG ONCE ONE 09/13 929 DC 09/13 IV 09/13 0931 0931 Ondansetron HCl 0 .STK-MED ONE 09/13 0602 DC .ROUTE Ondansetron HCl 4 MG ONCE ONE 09/13 06 DC 09/13 IV 09/13 0601 0610 Polyethylene Glycol 1 GAL ONCE ONE 09/13 1615 DC 09/13 PO 09/13 1616 1713 Sodium Chloride 1,000 ML BOLUS ONE 09/13 06 DC 09/13 IV 09/13 0659 0610 Past History Medical History Blood Transfusion Hx: No Neurological: NONE EENT: NONE Cardiovascular: NONE Respiratory: NONE Gastrointestinal: NONE Hepatic: NONE Renal: NONE Musculoskeletal: NONE Psychiatric: NONE Endocrine: NONE Blood Disorders: NONE Cancer(s): NONE 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 Home Services at Home: NONE Smoking Status: Current Everyday Smoker (1/2 pack per day x 30 years) ETOH Use: occasional use Illicit Drug Use: denies illicit drug use Employment History Employment: Employed Exam & Diagnostic Data Vital Signs and I&O Vital Signs Date Time Temp Pulse Resp B/P B/P Pulse O2 O2 Flow FiO2 Mean Ox Delivery Rate 09/13 1810 99.5 09/13 1607 100.2 09/13 1547 100.8 84 18 140/84 96 Room Air 09/13 1434 134/80 09/13 1420 98.9 91 18 178/84 97 Room Air 09/13 1134 99.1 80 18 148/76 99 Room Air 09/13 0925 98.2 82 18 145/77 97 Room Air 09/13 0537 98.7 77 20 164/110 98 Room Air Intake & Output 09/13 1600 09/13 0800 09/13 0000 09/12 1600 09/12 0800 09/12 0000 Intake Total 1000 Output Total Balance 1000 Intake, IV 1000 Patient 240 lb 240 lb Weight Weight Reported by Patient Measurement Method Physical Exam: nad abd obese, softly distended, +ttp b/l lq, no pavithra / guarding pelvic +vb, narrow introitus, cx palpates normal, difficulty in assessing ut / ov due to habitus, ttp ext nt no ed Last 24 Hours of Labs: Laboratory Tests 09/13 09/13 0829 0605 Chemistry Total Beta HCG (NEGATIVE) NEGATIVE Urines Urinalysis LIGHT H Urine Color (YEL,AMB,STR) YEL Urine Clarity (CLEAR) HAZY H Urine pH (5.0 - 8.0) 6.0 Ur Specific [place] (1.001 - 1.035) 1.025 Urine Protein (NEG,<30 MG/DL) 30 H Urine Ketones (NEG) NEG Urine Nitrite (NEG) NEG Urine Bilirubin (NEG) NEG Urine Urobilinogen (0.1 - 1.0 EU/dl) 0.2 Ur Leukocyte Esterase (NEG) SMALL H Ur Microscopic SEDIMENT EXAMINED Urine RBC (0 - 5 /HPF) 25-50 H Urine WBC (0 - 2 /HPF) 50-75 H Ur Epithelial Cells (NONE,FEW) FEW Urine Bacteria (NEG/NONE) FEW H Granular Casts (NONE /LPF) RARE H Urine Mucus (FEW,NONE) FEW Urine Hemoglobin (NEG) LARGE H Urine Glucose (N MG/DL) NEG 09/13 0605 Chemistry Sodium (137 - 145 mmol/L) 144 Potassium (3.5 - 5.1 mmol/L) 4.0 Chloride (98 - 107 mmol/L) 103 Carbon Dioxide (22 - 30 mmol/L) 27 Anion Gap (5 - 16) 14 BUN (7 - 17 mg/dL) 9 Creatinine (0.5 - 1.0 mg/dL) 0.8 Estimated GFR (>60 ml/min) > 60 BUN/Creatinine Ratio (7 - 25 %) 11.3 Glucose (65 - 99 mg/dL) 127 H Calcium (8.4 - 10.2 mg/dL) 9.6 Total Bilirubin (0.2 - 1.3 mg/dL) 0.5 Direct Bilirubin (< 0.4 mg/dL) 0.2 AST (14 - 36 U/L) 21 ALT (9 - 52 U/L) 27 Alkaline Phosphatase (<127 U/L) 82 Troponin I (< 0.11 ng/ml) < 0.01 Total Protein (6.3 - 8.2 g/dL) 7.0 Albumin (3.5 - 5.0 g/dL) 4.3 Amylase (30 - 110 U/L) 46 Lipase (23 - 300 U/L) 86 Hematology CBC w Diff NO MAN DIFF REQ WBC (4.8 - 10.8 /CUMM) 9.1 RBC (4.20 - 5.40 /CUMM) 4.94 Hgb (12.0 - 16.0 G/DL) 13.9 Hct (37 - 47 %) 42.0 MCV (81.0 - 99.0 FL) 84.9 MCH (27.0 - 31.0 PG) 28.1 MCHC (33.0 - 37.0 G/DL) 33.0 RDW (11.5 - 14.5 %) 14.8 H Plt Count (130 - 400 /CUMM) 341 MPV (7.4 - 10.4 FL) 8.9 Gran % (42.2 - 75.2 %) 65.2 Lymphocytes % (20.5 - 51.1 %) 29.3 Monocytes % (1.7 - 9.3 %) 4.0 Eosinophils % (0 - 5 %) 1.1 Basophils % (0.0 - 2.0 %) 0.4 Absolute Granulocytes (1.4 - 6.5 /CUMM) 5.9 Absolute Lymphocytes (1.2 - 3.4 /CUMM) 2.7 Absolute Monocytes (0.10 - 0.60 /CUMM) 0.4 Absolute Eosinophils (0.0 - 0.7 /CUMM) 0.1 Absolute Basophils (0.0 - 0.2 /CUMM) 0 Imaging Results: Transabdominal and transvaginal pelvic ultrasound. A transvaginal study was performed in addition to the transabdominal study which did not yield an adequate examination of the uterus and ovaries due to superimposed distended gas-filled loops of bowel. FINDINGS: Uterus: The uterus is anteverted and enlarged, measuring approximately 14.8 x 10.1 x 12.4 cm. The endometrial stripe thickness is abnormal, measuring up to 4.4 cm in thickness. There is a 2.0 x 2.4 x 2.6 cm heterogeneously echogenic mass seen in the lower uterine segment within the endometrium, perhaps representing a discrete endometrial polyp. No endometrial free fluid is seen. The cervical length is normal measuring 3.0 cm. Ovaries: The ovaries bilaterally are poorly visualized due to the high pelvic location and underdistention of the bladder. The ovaries are seen adjacent to the uterine fundus and appear grossly normal with several small follicles seen. The right ovary measures 3.3 x 2.4 x 2.3 cm and the left ovary measures 3.6 x 1.8 x 1.8 cm. There is vascular flow to both ovaries, though poorly assessed on transabdominal scan. Other: In the right lower quadrant, lateral to the right uterine fundus, there is a ill-defined mass with shadowing seen. In correlating with the CT scan, there is a 4.1 x 4.3 x 3.7 cm solid mass with coarse calcifications seen adjacent to the appendix, possibly representing a partially calcified mucocele versus other mass, including neoplastic processes, such as carcinoid tumor. There is a second mass seen posterior to the cervix and lower uterine segment, erroneously labeled on the images as left ovary, measuring 3.2 x 2.7 x 2.2 cm and demonstrating arterial and venous flow. This corresponds to a solid appearing mass in the lower pelvis seen on CT scan, inseparable from the rectosigmoid colon. This is suspicious for a neoplastic process. Trace amount of free fluid is seen around this mass. IMPRESSION: 1. Difficult exam due to enlarged uterus extending beyond the range of the transvaginal probe and due to underdistention of the bladder, which limits transabdominal assessment. 2. There is abnormal diffuse thickening of the endometrial stripe with question of an endometrial mass in the lower uterine segment. Consider further assessment with MRI scan versus biopsy procedure/D\T\C to evaluate these findings further. Differential possibilities include prominent hyperplastic endometrium and endometrial polyp versus endometrial cancer. 3. Ovaries bilaterally poorly visualized but grossly normal in appearance. 4. Large masses are seen in the pelvis, one located posterior to the lower uterine segment and the other in the right lower quadrant, corresponding to the soft tissue masses seen on CT scan. Findings are suspicious for a neoplastic process, such as carcinoid tumor, gastrointestinal stromal tumor, mesenteric fibromatosis, sarcoma, or lymphoma. Benign entities such as inflammatory pseudotumor could be considered as well. Assessment/Plan Assessment/Plan 42yo P0 w/ abdominal pain, constipation and menomentrorrhagia. Now also with low grade fevers of unclear etiology. Imaging reveals multiple pelvic masses and uterine mass with markedly thickened endometrial lining, suspicious for neoplastic processes. Pt scheduled for diagnostic colonoscopy tomorrow. Can schedule for diagnostic hysteroscopy for tissue diagnosis tomorrow. Pt agrees to plan. NPO after midnight. 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 Consult appreciated. Consult Acknowledgment - Thank you for your consult request.
[2017-09-13 22:34] VITALS: BP 140/84
[2017-09-14 05:52] VITALS: BP 120/82
--- NOTE | 2017-09-14 07:27 | PN- Housestaff ---
Subjective Follow-up For: Abdominal mass/pelvic mass suspicious for malignancy Subjective: Patient seen and examined. Resting comfortably in the bed. Easily arousable. Reports pain being controlled by morphine. Tearful and anxious about the current ongoing diagnosis. Emotional support provided. Reports low-grade fevers overnight Review of Systems Constitutional: Reports: see HPI. Objective Last 24 Hrs of Vital Signs/I&O Vital Signs Date Time Temp Pulse Resp B/P B/P Pulse O2 O2 Flow FiO2 Mean Ox Delivery Rate 09/14 0552 99.6 78 20 120/82 96 Room Air 09/13 2234 100.4 84 18 140/84 96 09/13 1810 99.5 09/13 1607 100.2 09/13 1547 100.8 84 18 140/84 96 Room Air 09/13 1434 134/80 09/13 1420 98.9 91 18 178/84 97 Room Air Intake & Output 09/14 1600 09/14 0800 09/14 0000 Intake Total 600 800 Output Total Balance 600 800 Intake, Oral 600 800 Physical Exam General Appearance: Alert, Oriented X3 Cardiovascular: Normal S1, Normal S2 Lungs: Clear to Auscultation, Normal Air Movement Abdomen: Normal Bowel Sounds, Soft, LLQ tenderness, suprapubic tenderness Neurological: Normal Speech Current Medications: Current Medications Sig/Leonel Start time Last Medication Dose Route Stop Time Status Admin Acetaminophen 650 MG ONCE ONE 09/13 1745 DC PO 09/13 1746 Dicyclomine HCl 20 MG 4 TIMES/DAY PRN 09/13 1745 AC PO Docusate Sodium 200 MG ONCE ONE 09/14 1999 DC 09/13 PO 09/13 2000 191 Enoxaparin Sodium 40 MG DAILY 09/14 0900 CAN SC Ibuprofen 600 MG Q6P PRN 09/13 1345 AC PO Morphine Sulfate 2 MG Q4P PRN 09/13 1915 AC 09/14 IV 0613 Morphine Sulfate 0 .STK-MED ONE 09/13 1506 DC .ROUTE Morphine Sulfate 2 MG Q4P PRN 09/13 1345 DC 09/13 IV 1512 Polyethylene Glycol 1 GAL ONCE ONE 09/13 1615 DC 09/13 PO 09/13 1616 1713 Last 24 Hrs of Lab/Morgan Results Last 24 Hrs of Labs/Mics: Laboratory Tests 09/14/17 0745: Anion Gap 11, Estimated GFR > 60, BUN/Creatinine Ratio 8.8, CBC w Diff NO MAN DIFF REQ, RBC 4.28, MCV 85.5, MCH 28.3, MCHC 33.0, RDW 15.0 H, MPV 9.3, Gran % 75.2, Lymphocytes % 20.8, Monocytes % 3.8, Eosinophils % 0.1, Basophils % 0.1, Absolute Granulocytes 7.1 H, Absolute Lymphocytes 2.0, Absolute Monocytes 0.4, Absolute Eosinophils 0, Absolute Basophils 0 Microbiology 09/14 123 BLOOD: Blood Culture - ORD 09/14 123 BLOOD: Blood Culture - ORD Assessment/Plan Assessment: 42 YO F obese, smoker (1/2 pack/d for 30 yrs) with PMH menorrhagia status post D &C with hysteroscopy (2010), cholecystectomy and cervical spine surgery came to ED with chief complaint of left lower abdominal pain for last 1-1/2 week. The patient is being treated evaluated for following conditions #Lower abdominal pain and pelvic mass with enhance uterine strip Differentials include endometrial carcinoma, endometrial fibroid, ovarian mass versus appendiceal mucocyst. Need to rule out colonic malignancy. Other tumor such as lymphoma sarcoma or carcinoid will need to be excluded as well -Patient is planned for colonoscopy today, Currently nothing by mouth -She is scheduled for hysteroscopy with possible biopsy tomorrow 1pm; will need to be again nothing by mouth with IV fluids overnight -Patient will eventually require a diagnostic laparoscopy. -Continue morphine for pain -Abdominal spasmodic pain can be controlled with antispasmodic medication -CEA, CA 125 levels PENDING #Fever Patient is spiking low-grade fever. No obvious sources of infection patient does not have any urinary symptoms. She is afebrile without white count. No cough or upper respiratory tract infection. Most likely tumor fever. Will do basic workup -BC x2 -CXR -NSAIDs for fever control #Menorrhagia -Follow-up CBC for any drop in H&H considering her menorrhagia. currently stable #Constipation: -Patient was complaining of constipation and she didn't have bowel movement for last 1 week. -Continue laxatives #Smoking cessation: -Counseling for smoking cessation -Nicotine patch as needed #NPO for now/ALPS and subcutaneous Lovenox/FC Problem List: 1. Abdominal mass Pain Ratin Pain Location: supra pubic Pain Goal: Pain 4 or less Pain Plan: morphine and NSAIDS Tomorrow's Labs & Rationales: cbc
[2017-09-14 08:45] LABS: ABSOLUTE BASOPHIL COUNT 0 /CUMM (0.0-0.2); ABSOLUTE EOSINOPHIL COUNT 0 /CUMM (0.0-0.7); ABSOLUTE GRANULOCYTE CT 7.1 /CUMM (1.4-6.5); ABSOLUTE MONOCYTE COUNT 0.4 /CUMM (0.10-0.60); BASOPHIL % 0.1 % (0.0-2.0); EOSINOPHIL % 0.1 % (0-5); GRANULOCYTE % 75.2 % (42.2-75.2); MEAN CORPUSCULAR HGB 28.3 PG (27.0-31.0); MEAN CORPUSCULAR VOLUME 85.5 FL (81.0-99.0); MEAN PLATELET VOLUME 9.3 FL (7.4-10.4); PLATELET COUNT 263 /CUMM (130-400); RED BLOOD CELL CT 4.28 /CUMM (4.20-5.40); WHITE BLOOD CELL COUNT 9.5 /CUMM (4.8-10.8)
[2017-09-14 09:00] LABS: HEMATOCRIT 36.6 % (37-47)
--- NOTE | 2017-09-14 11:03 | PN- Att Addend ---
Attending Addendum Attending Brief Note Patient seen and examined. Plan of care discussed with the medical team, emergency room physician and the patient. Patient's was at the bedside. Available lab work and radiology test reports were reviewed. Overnight she was found to be febrile with low-grade temperatures. She continues to have abdominal pain in the suprapubic and left lower quadrant area abdomen. She is currently nothing by mouth for colonoscopy and is undergoing prep. Exam: General: Patient awake alert oriented without any distress; Mallar rash is noted CVS: S1 plus S2 without any murmur or gallops Chest: Few scattered crepitation without any wheeze. There is no respiratory distress. 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 Need to rule out colonic malignancy. Other tumor such as lymphoma sarcoma or carcinoid will need to be excluded as well * Fever- deferential included tumor fever, UTI or pneumonia; patient does not exhibit any urinary symptoms suggest UTI neither she has any coughing or phlegm production which will suggest pneumonia Plan * Await colonoscopy * Plan for hysteroscopy tomorrow; will need to be again nothing by mouth with IV fluids overnight * Patient will he may need diagnostic laparoscopy * Continue morphine for pain * Continue Nicotine patch * Check chest x-ray Current Medications Sig/Leonel Start time Last Medication Dose Route Stop Time Status Admin Acetaminophen 650 MG ONCE ONE 09/13 1745 DC PO 09/13 1746 Dicyclomine HCl 20 MG 4 TIMES/DAY PRN 09/13 1745 AC PO Docusate Sodium 200 MG ONCE ONE 09/14 1999 DC 09/13 PO 09/13 Enoxaparin Sodium 40 MG DAILY 09/14 0900 CAN SC Ibuprofen 600 MG Q6P PRN 09/13 1345 AC PO Morphine Sulfate 2 MG Q4P PRN 09/13 1915 AC 09/14 IV 0613 Morphine Sulfate 0 .STK-MED ONE 09/13 1506 DC .ROUTE Morphine Sulfate 2 MG Q4P PRN 09/13 1345 DC 09/13 IV 1512 Polyethylene Glycol 1 GAL ONCE ONE 09/13 1615 DC 09/13 PO 09/13 1616 1713 Laboratory Tests 09/14/17 0745: Anion Gap 11, Estimated GFR > 60, BUN/Creatinine Ratio 8.8, CBC w Diff NO MAN DIFF REQ, RBC 4.28, MCV 85.5, MCH 28.3, MCHC 33.0, RDW 15.0 H, MPV 9.3, Gran % 75.2, Lymphocytes % 20.8, Monocytes % 3.8, Eosinophils % 0.1, Basophils % 0.1, Absolute Granulocytes 7.1 H, Absolute Lymphocytes 2.0, Absolute Monocytes 0.4, Absolute Eosinophils 0, Absolute Basophils 0 09/13/17 0829: Urinalysis LIGHT H, Urine Color YEL, Urine Clarity HAZY H, Urine pH 6.0, Ur Specific [place] 1.025, Urine Protein 30 H, Urine Ketones NEG, Urine Nitrite NEG, Urine Bilirubin NEG, Urine Urobilinogen 0.2, Ur Leukocyte Esterase SMALL H , Ur Microscopic SEDIMENT EXAMINED, Urine RBC 25-50 H, Urine WBC 50-75 H, Ur Epithelial Cells FEW, Urine Bacteria FEW H, Granular Casts RARE H, Urine Mucus FEW, Urine Hemoglobin LARGE H, Urine Glucose NEG 09/13/17 0605: Total Beta HCG NEGATIVE 09/13/17 0605: Anion Gap 14, Estimated GFR > 60, BUN/Creatinine Ratio 11.3, Glucose 127 H, Calcium 9.6, Total Bilirubin 0.5, Direct Bilirubin 0.2, AST 21, ALT 27, Alkaline Phosphatase 82, Troponin I < 0.01, Total Protein 7.0, Albumin 4.3, Amylase 46, Lipase 86, CBC w Diff NO MAN DIFF REQ, RBC 4.94, MCV 84.9, MCH 28.1, MCHC 33.0, RDW 14.8 H, MPV 8.9, Gran % 65.2, Lymphocytes % 29.3, Monocytes % 4.0, Eosinophils % 1.1, Basophils % 0.4, Absolute Granulocytes 5.9, Absolute Lymphocytes 2.7, Absolute Monocytes 0.4, Absolute Eosinophils 0.1, Absolute Basophils 0 Vital Signs Date Time Temp Pulse Resp B/P B/P Pulse O2 O2 Flow FiO2 Mean Ox Delivery Rate 09/14 0552 99.6 78 20 120/82 96 Room Air 09/13 2234 100.4 84 18 140/84 96 09/13 1810 99.5 09/13 1607 100.2 09/13 1547 100.8 84 18 140/84 96 Room Air 09/13 1434 134/80 09/13 1420 98.9 91 18 178/84 97 Room Air 09/13 1134 99.1 80 18 148/76 99 Room Air Intake & Output 09/14 1600 09/14 0800 09/14 0000 Intake Total 600 800 Output Total Balance 600 800 Intake, Oral 600 800
[2017-09-14 14:44] VITALS: BP 100/60
--- NOTE | 2017-09-14 15:41 | Proc Note Colonoscopy ---
Colonoscopy Procedure Medical History: unchanged (see meditech consult) Mental Status: alert/oriented Heart/Lung Eval Prior to Sedation: within normal limits Candidate for Sedation? Yes Date of Last Colonoscopy: No prior colonoscopy. Procedure Date: 09/14/17 Procedure Type: colonoscopy w/biopsy Risk Assessor: Trav Arias MD ASA Classification: III Indications: Abnormal CAT scan showing appendiceal mass. Colonoscopy being performed to rule out any cecal involvement. Instrument (Colonoscope): single channel Meds Received: MAC Patient's Tolerance: good Complications: none Extent Reached: terminal ileum Prep: good Procedure: The risks of a colonoscopy was explained to the patient including, but not limited to, the risks of perforation, bleeding and/or a missed lesion and then written informed consent was obtained. After getting written informed consent the patient was placed in the left lateral decubitus position with pulse oximetry, cardiac monitoring, and supplemental oxygen was given. IV sedation was given until the desired effect was achieved. A rectal exam was performed which was normal. A high definition variable stiffness Olympus colonoscope was then inserted into the anus and advanced to the terminal ileum with little difficulty. Retroflexed views were obtained and photodocumentation was obtained. Close inspection of the colonic mucosa was performed on insertion and withdrawal of the colonoscope with a withdrawal time that was adequate in length to closely inspect all folds and johnson of the colon. Findings: There was a 4 mm sessile polyp in the cecum that did not involve the appendiceal orifice and was removed with multiple bites of a cold biopsy forceps and was sent to pathology for further evaluation. The appendiceal orifice was normal in appearance and the remainder of the colonic mucosa was normal in appearance. The terminal ileum was also normal in appearance. Retroflexed views in the rectum revealed small internal hemorrhoids. Impression: 1. One diminutive cecal polyp status post motor vehicle biopsy forceps. 2. Normal appendiceal orifice and terminal ileum. 3. Small internal hemorrhoids. Recommendations: 1. She should maintain herself on a high-fiber diet. 2. She should follow up the pathology results me as an outpatient. 3. If the pathology results show adenomatous changes she should have a repeat colonoscopy in 3-5 years time. 4. Consideration should be given for an appendectomy as per surgery. Followup Colonscopy Screen In: pending biopsy result(s) CC: Deep STAPLES,Tomas Bonilla
--- NOTE | 2017-09-14 16:31 | RADIOLOGY REPORT ---
EXAMINATION: XR CHEST CLINICAL INFORMATION: Patient's spiking low-grade fevers. There is being evaluated for abdominal or pelvic mass, suspicious for malignancy. Rule out any acute pulmonary pathology. COMPARISON: Chest x-ray dated 09/05/2007. TECHNIQUE: AP and lateral views of the chest were obtained. FINDINGS: The cardiomediastinal silhouette is enlarged. Low lung volumes are seen with resultant crowding of bronchovascular markings in the lung bases bilaterally and mild fullness of the central pulmonary vessels. No focal consolidation, effusion, pneumothorax or pulmonary edema is seen. Lower cervical spine fusion hardware is seen in place. Bony structures are otherwise unremarkable. IMPRESSION: Low lung volumes. No focal pneumonia.
[2017-09-14 16:47] VITALS: BP 120/78
[2017-09-14 22:07] VITALS: BP 140/70
[2017-09-15 07:04] VITALS: BP 120/74
--- NOTE | 2017-09-15 07:22 | PN- Housestaff ---
Subjective Follow-up For: Lower abdominal pain and pelvic mass Bacteremia secondary to UTI Colonic polyp Subjective: Patient seen and examined. Spiking fever overnight, BC positive for gram negative rods She continues to have abdominal pain in the suprapubic and left lower quadrant area abdomen. Plan for hysteroscopy today. Review of Systems Constitutional: Reports: see HPI. Objective Last 24 Hrs of Vital Signs/I&O Vital Signs Date Time Temp Pulse Resp B/P B/P Pulse O2 O2 Flow FiO2 Mean Ox Delivery Rate 09/15 1547 97.4 71 18 126/78 96 Room Air 09/15 1317 100.4 09/15 1226 101.0 09/15 1124 100.6 09/15 1117 100.6 09/15 0704 97.9 88 18 120/74 97 Room Air 09/14 2332 99.6 09/14 2328 99.6 09/14 2229 101.1 09/14 2207 101.1 99 20 140/70 93 Intake & Output 09/15 1600 09/15 0800 09/15 0000 Intake Total 250 350 700 Output Total 525 Balance -275 350 700 Intake, IV 250 350 Intake, Oral 700 Output, Urine 525 Physical Exam General Appearance: Alert, Oriented X3 Cardiovascular: Normal S1, Normal S2 Lungs: Clear to Auscultation Abdomen: Soft Current Medications: Current Medications Sig/Leonel Start time Last Medication Dose Route Stop Time Status Admin Acetaminophen 650 MG Q6P PRN 09/14 2230 AC 09/15 PO 1124 Ceftriaxone Sodium 1,000 MG DAILY 09/15 1041 AC 09/15 IV 1231 Dicyclomine HCl 20 MG 4 TIMES/DAY PRN 09/13 1745 PO Ibuprofen 600 MG ONCE ONE 09/15 1315 DC PO 09/15 1316 Ibuprofen 600 MG Q6P PRN 09/13 1345 AC 09/15 PO 0927 Morphine Sulfate 2 MG Q4P PRN 09/13 1915 AC 09/14 IV 1643 Patient Medication 1 ED ONE ONE 09/15 1145 DC Teaching ED 09/15 1146 Sodium Chloride 1,000 ML Q20H 09/15 0000 DC 09/14 IV 09/15 1959 2316 Last 24 Hrs of Lab/Morgan Results Last 24 Hrs of Labs/Mics: Laboratory Tests 09/15/17 1057: Urinalysis LIGHT H, Urine Color BLDY H, Urine Clarity CLDY H, Urine pH 6.0, Ur Specific [place] 1.025, Urine Protein 100 H, Urine Ketones 15 H, Urine Nitrite POS H, Urine Bilirubin [email or web address]@[email or web address], Urine Urobilinogen 4.0 H, Ur Leukocyte Esterase MOD H, Ur Microscopic SEDIMENT EXAMINED, Urine RBC >75 H, Urine WBC > 75 H, Ur Epithelial Cells MOD H, Urine Bacteria MOD H, Urine Mucus FEW, Micro UA Comment MORE INFO: H, Urine Hemoglobin LARGE H, Urine Glucose NEG 09/15/17 0916: Lactic Acid 1.1 09/15/17 0705: CBC w Diff NO MAN DIFF REQ, RBC 4.42, MCV 85.9, MCH 28.2, MCHC 32.8 L, RDW 15.0 H, MPV 10.0, Gran % 91.8 H, Lymphocytes % 6.6 L, Monocytes % 1.3 L, Eosinophils % 0.2, Basophils % 0.1, Absolute Granulocytes 17.4 H, Absolute Lymphocytes 1.2, Absolute Monocytes 0.3, Absolute Eosinophils 0, Absolute Basophils 0 Microbiology 09/15 1057 URINE ROUT: Urine Culture - RECD 09/14 2214 BLOOD: Blood Culture - CAN Cancelled: Cancelled via OE: Per MD Decision 09/14 2214 BLOOD: Blood Culture - CAN Cancelled: Cancelled via OE: Per MD Decision Assessment/Plan Assessment: 42 YO F obese, smoker (1/2 pack/d for 30 yrs) with PMH menorrhagia status post D &C with hysteroscopy (2010), cholecystectomy and cervical spine surgery came to ED with chief complaint of left lower abdominal pain for last 1-1/2 week. The patient is being treated evaluated for following conditions #Lower abdominal pain and pelvic mass with enhance uterine strip Differentials include endometrial carcinoma, endometrial fibroid, ovarian mass versus appendiceal mucocyst. Need to rule out colonic malignancy. Other tumor such as lymphoma sarcoma or carcinoid will need to be excluded as well -Patient underwent colonoscopy yesterday with finding of sessile cecal polyp, Normal appendiceal orifice and terminal ileum and Small internal hemorrhoids. -She is scheduled for hysteroscopy with possible biopsy @ 1pm today -Patient will eventually require a diagnostic laparoscopy. We will get in touch with surgical service again regarding their input on the matter. -Continue morphine for pain -Abdominal spasmodic pain can be controlled with antispasmodic medication -CEA 2.0 wnl. CA 125 126 #Bacteremia secondary to UTI Patient was a workup for fever of unknown origin versus fever versus infectious causes. Today is patient leukocyte count went upto 19, blood cultures are positive for gram-negative rods. Patient's urine initially was positive for small leukocyte esterase however she was asymptomatic. We repeated the UA which is positive for leukoesterase and positive nitrate. Urine culture has also been sent -Fever control with Tylenol and Motrin -Chest x-rays no cardiopulmonary pathology -Follow up blood cultures for final sensitivities -Follow-up urine culture -Start patient on ceftriaxone #Menorrhagia -Follow-up CBC for any drop in H&H considering her menorrhagia. -currently stable #Constipation: -Patient was complaining of constipation and she didn't have bowel movement for last 1 week. -Continue laxatives -Abdominal spasmodic pain can be controlled with antispasmodic medication #Smoking cessation: -Counseling for smoking cessation -Nicotine patch as needed #NPO for now/ALPS and subcutaneous Lovenox/FC Problem List: 1. Abdominal pain 2. Abdominal mass Pain Ratin Pain Location: lower abd Pain Goal: Pain 4 or less Pain Plan: prn Tomorrow's Labs & Rationales: cbc
[2017-09-15 08:13] LABS: ABSOLUTE BASOPHIL COUNT 0 /CUMM (0.0-0.2); ABSOLUTE EOSINOPHIL COUNT 0 /CUMM (0.0-0.7); ABSOLUTE GRANULOCYTE CT 17.4 /CUMM (1.4-6.5); ABSOLUTE LYMPH COUNT 1.2 /CUMM (1.2-3.4); ABSOLUTE MONOCYTE COUNT 0.3 /CUMM (0.10-0.60); BASOPHIL % 0.1 % (0.0-2.0); EOSINOPHIL % 0.2 % (0-5); MEAN CORPUSCULAR HGB 28.2 PG (27.0-31.0); MEAN CORPUSCULAR HGB CONC 32.8 G/DL (33.0-37.0); MEAN CORPUSCULAR VOLUME 85.9 FL (81.0-99.0); RED BLOOD CELL CT 4.42 /CUMM (4.20-5.40)
[2017-09-15 09:06] LABS: GRANULOCYTE % 91.8 % (42.2-75.2); PLATELET COUNT 254 /CUMM (130-400); WHITE BLOOD CELL COUNT 18.9 /CUMM (4.8-10.8)
--- NOTE | 2017-09-15 12:00 | PN- Att Addend ---
Attending Addendum Attending Brief Note Patient seen and examined. Plan of care discussed with the medical team, emergency room physician and the patient. Patient's and sister were at the bedside. Available lab work and radiology test reports were reviewed. Overnight she was found to be febrile with MAXIMUM TEMPERATURE 101. She continues to have abdominal pain in the suprapubic and left lower quadrant area abdomen. She is currently nothing by mouth for hysteroscopy. Exam: General: Patient awake alert oriented without any distress; CVS: S1 plus S2 without any murmur or gallops Chest: Few scattered crepitation without any wheeze. There is no respiratory distress. 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 Need to rule out colonic malignancy. Other tumor such as lymphoma sarcoma or carcinoid will need to be excluded as well * Fever- likely UTI or pyelonephritis with bacteremia with gram-negative rods ; deferential includes tumor fever; her chest x-ray was negative for pneumonia * Colonic polyp found on colonoscopy awaiting pathology Plan * plan for hysteroscopy today * Patient will he may need diagnostic laparoscopy * Start IV ceftriaxone * Await final culture reports * Repeat CBC tomorrow * Treat fever with Tylenol or Motrin * Continue morphine for pain * Continue Nicotine patch Current Medications Sig/Leonel Start time Last Medication Dose Route Stop Time Status Admin Acetaminophen 650 MG Q6P PRN 09/14 2230 AC 09/15 PO 1124 Ceftriaxone Sodium 1,000 MG DAILY 09/15 1041 AC IV Chlorhexidine 1 GM .STK-MED ONE 09/14 1544 DC Gluconate TOP 09/14 1545 Dicyclomine HCl 20 MG 4 TIMES/DAY PRN 09/13 1745 AC PO Ibuprofen 600 MG Q6P PRN 09/13 1345 AC 09/15 PO 0927 Morphine Sulfate 2 MG Q4P PRN 09/13 1915 AC 09/14 IV 1643 Patient Medication 1 ED ONE ONE 09/15 1145 NM Teaching ED 09/15 1146 Patient Medication 1 ED ONE ONE 09/14 1715 DC 09/14 Teaching ED 09/14 1716 1709 Sodium Chloride 1,000 ML Q20H 09/15 0000 AC 09/14 IV 09/15 1959 2316 Laboratory Tests 09/15/17 0916: Lactic Acid 1.1 09/15/17 0705: CBC w Diff NO MAN DIFF REQ, RBC 4.42, MCV 85.9, MCH 28.2, MCHC 32.8 L, RDW 15.0 H, MPV 10.0, Gran % 91.8 H, Lymphocytes % 6.6 L, Monocytes % 1.3 L, Eosinophils % 0.2, Basophils % 0.1, Absolute Granulocytes 17.4 H, Absolute Lymphocytes 1.2, Absolute Monocytes 0.3, Absolute Eosinophils 0, Absolute Basophils 0 09/14/17 0745: Anion Gap 11, Estimated GFR > 60, BUN/Creatinine Ratio 8.8, CBC w Diff NO MAN DIFF REQ, RBC 4.28, MCV 85.5, MCH 28.3, MCHC 33.0, RDW 15.0 H, MPV 9.3, Gran % 75.2, Lymphocytes % 20.8, Monocytes % 3.8, Eosinophils % 0.1, Basophils % 0.1, Absolute Granulocytes 7.1 H, Absolute Lymphocytes 2.0, Absolute Monocytes 0.4, Absolute Eosinophils 0, Absolute Basophils 0 09/14/17 0600: Carcinoembryonic Ag 2.0, CA 125 Antigen 126 09/13/17 0829: Urinalysis LIGHT H, Urine Color YEL, Urine Clarity HAZY H, Urine pH 6.0, Ur Specific [place] 1.025, Urine Protein 30 H, Urine Ketones NEG, Urine Nitrite NEG, Urine Bilirubin NEG, Urine Urobilinogen 0.2, Ur Leukocyte Esterase SMALL H , Ur Microscopic SEDIMENT EXAMINED, Urine RBC 25-50 H, Urine WBC 50-75 H, Ur Epithelial Cells FEW, Urine Bacteria FEW H, Granular Casts RARE H, Urine Mucus FEW, Urine Hemoglobin LARGE H, Urine Glucose NEG 09/13/17 0605: Total Beta HCG NEGATIVE 09/13/17 0605: Anion Gap 14, Estimated GFR > 60, BUN/Creatinine Ratio 11.3, Glucose 127 H, Calcium 9.6, Total Bilirubin 0.5, Direct Bilirubin 0.2, AST 21, ALT 27, Alkaline Phosphatase 82, Troponin I < 0.01, Total Protein 7.0, Albumin 4.3, Amylase 46, Lipase 86, CBC w Diff NO MAN DIFF REQ, RBC 4.94, MCV 84.9, MCH 28.1, MCHC 33.0, RDW 14.8 H, MPV 8.9, Gran % 65.2, Lymphocytes % 29.3, Monocytes % 4.0, Eosinophils % 1.1, Basophils % 0.4, Absolute Granulocytes 5.9, Absolute Lymphocytes 2.7, Absolute Monocytes 0.4, Absolute Eosinophils 0.1, Absolute Basophils 0 Microbiology 09/15 1040 URINE ROUT: Urine Culture - ORD 09/14 2214 BLOOD: Blood Culture - CAN Cancelled: Cancelled via OE: Per MD Decision 09/14 2214 BLOOD: Blood Culture - CAN Cancelled: Cancelled via OE: Per MD Decision 09/14 165 BLOOD: Blood Culture - RECD 09/14 125 BLOOD: Blood Culture - RES GRAM NEGATIVE RODS Vital Signs Date Time Temp Pulse Resp B/P B/P Pulse O2 O2 Flow FiO2 Mean Ox Delivery Rate 09/15 1124 100.6 09/15 1117 100.6 09/15 0704 97.9 88 18 120/74 97 Room Air 09/14 2332 99.6 09/14 2328 99.6 09/14 2229 101.1 09/14 2207 101.1 99 20 140/70 93 09/14 1647 100.4 79 18 120/78 98 Room Air 09/14 1444 99.7 98 20 100/60 95 Room Air Intake & Output 09/15 1600 09/15 0800 09/15 0000 Intake Total 350 700 Output Total 125 Balance -125 350 700 Intake, IV 350 Intake, Oral 700 Output, Urine 125
[2017-09-15 15:47] VITALS: BP 126/78
[2017-09-15 22:26] VITALS: BP 124/78
[2017-09-16 06:21] VITALS: BP 130/80
--- NOTE | 2017-09-16 07:32 | PN- Housestaff ---
See Addendum Subjective Follow-up For: Lower abdominal pain and pelvic mas Subjective: Patient seen and examined. Appears to be doing well. Continues to complain of mild abdominal pain more crampy in nature. Much improved. Pain is being well controlled. Was seen walking in the hallway with her . Was afebrile overnight. Review of Systems Constitutional: Reports: see HPI. Objective Last 24 Hrs of Vital Signs/I&O Vital Signs Date Time Temp Pulse Resp B/P B/P Pulse O2 O2 Flow FiO2 Mean Ox Delivery Rate 09/16 0621 97.8 72 20 130/80 98 Room Air 09/15 2226 97.9 88 14 124/78 97 Room Air 09/15 1547 97.4 71 18 126/78 96 Room Air Intake & Output 09/16 1600 09/16 0800 09/16 0000 Intake Total 800 480 600 Output Total 300 Balance 800 480 300 Intake, Oral 800 480 600 Output, Urine 300 Physical Exam General Appearance: Alert, Oriented X3, Cooperative Cardiovascular: Normal S1, Normal S2 Lungs: Clear to Auscultation, Normal Air Movement Abdomen: Normal Bowel Sounds, Soft, LOWER ABD TENDERNESS Neurological: Normal Speech Current Medications: Current Medications Sig/Leonel Start time Last Medication Dose Route Stop Time Status Admin Acetaminophen 650 MG Q6P PRN 09/14 2230 AC 09/15 PO 1124 Ceftriaxone Sodium 1,000 MG DAILY 09/15 1041 AC 09/16 IV 0848 Dicyclomine HCl 20 MG 4 TIMES/DAY PRN 09/13 1745 AC PO Ibuprofen 600 MG Q6P PRN 09/13 1345 AC 09/15 PO 0927 Morphine Sulfate 2 MG Q4P PRN 09/13 1915 AC 09/14 IV 1643 Sodium Chloride 1,000 ML Q20H 09/15 0000 DC 09/14 IV 09/15 1959 2316 Last 24 Hrs of Lab/Morgan Results Last 24 Hrs of Labs/Mics: Laboratory Tests 09/16/17 0715: CBC w Diff MAN DIFF ORDERED, RBC 3.85 L, MCV 85.0, MCH 28.6, MCHC 33.7, RDW 14.5, MPV 9.9, Gran % 89.3 H, Lymphocytes % 5.8 L, Monocytes % 4.9, Eosinophils % 0, Basophils % 0, Absolute Granulocytes 9.8 H, Segmented Neutrophils 71, Band Neutrophils 20 H, Absolute Lymphocytes 0.6 L, Lymphocytes 5 L, Monocytes 4, Absolute Monocytes 0.5, Absolute Eosinophils 0, Absolute Basophils 0, Platelet Estimate VERIFIED BY SMEAR, Polychromasia 1+ Microbiology 09/16 0906 BLOOD: Blood Culture - RECD 09/16 0850 BLOOD: Blood Culture - RECD Assessment/Plan Assessment: 42 YO F obese, smoker (1/2 pack/d for 30 yrs) with PMH menorrhagia status post D &C with hysteroscopy (2010), cholecystectomy and cervical spine surgery came to ED with chief complaint of left lower abdominal pain for last 1-1/2 week. The patient is being treated evaluated for following conditions #Lower abdominal pain and pelvic mass with enhance uterine strip Differentials include endometrial carcinoma, endometrial fibroid, ovarian mass versus appendiceal mucocyst. Need to rule out colonic malignancy. Other tumor such as lymphoma sarcoma or carcinoid will need to be excluded as well. CEA 2.0 wnl. CA 125 126 -Patient underwent colonoscopy with finding of sessile cecal polyp, Normal appendiceal orifice and terminal ileum and Small internal hemorrhoids. -She underwent hysteroscopy with possible biopsies yesterday however the hysteroscope findings were non-specific. If patient's biopsy-positive she will need to go to [place] for staging laparoscopy. If biopsy is negative then she will need exploratory laparoscopy which can be done here. -Lobito Carmen MD is going to talk to Dr. Goldstein for possible multidisciplinary approach -Continue morphine for pain -Abdominal spasmodic pain can be controlled with antispasmodic medication #Bacteremia Patient initially started spiking low-grade fevers which was initially thought to be tumor fever however workup was done to rule out any infectious causes. CXR did not show any acute cardiopulmonary process. Blood cultures were sent. Patient started having elevated white count and later blood cultures grew gram- negative rods and patient was started on IV ceftriaxone. UA was positive for leukoesterase and nitrates urine culture were sent. 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 Today the blood culture is positive for anaerobic rods however the final sensitivities are pending. Patient should be covered for anaerobic bacteria. -Fever control with Tylenol and Motrin -Follow up blood cultures for final sensitivities -Follow-up urine culture No -Start metronidazole #Menorrhagia -Follow-up CBC for any drop in H&H considering her menorrhagia. -currently stable #Constipation: -Patient was complaining of constipation and she didn't have bowel movement for last 1 week. -Continue laxatives -Abdominal spasmodic pain can be controlled with antispasmodic medication #Smoking cessation: -Counseling for smoking cessation -Nicotine patch as needed #NPO for now/ALPS and subcutaneous Lovenox/FC Problem List: 1. Abdominal mass 2. Abdominal pain 3. Menorrhagia Pain Ratin Pain Location: Lower abd pain Pain Goal: Pain 4 or less Pain Plan: prn Tomorrow's Labs & Rationales: cbc
[2017-09-16 09:23] LABS: ABSOLUTE BASOPHIL COUNT 0 /CUMM (0.0-0.2); ABSOLUTE EOSINOPHIL COUNT 0 /CUMM (0.0-0.7); EOSINOPHIL % 0 % (0-5); PLATELET COUNT 247 /CUMM (130-400)
[2017-09-16 10:25] LABS: ABSOLUTE GRANULOCYTE CT 9.8 /CUMM (1.4-6.5); ABSOLUTE LYMPH COUNT 0.6 /CUMM (1.2-3.4); ABSOLUTE MONOCYTE COUNT 0.5 /CUMM (0.10-0.60); BASOPHIL % 0 % (0.0-2.0); GRANULOCYTE % 89.3 % (42.2-75.2); MEAN CORPUSCULAR HGB 28.6 PG (27.0-31.0); MEAN CORPUSCULAR HGB CONC 33.7 G/DL (33.0-37.0); MEAN PLATELET VOLUME 9.9 FL (7.4-10.4); RBC DISTRIBUTION WIDTH 14.5 % (11.5-14.5); RED BLOOD CELL CT 3.85 /CUMM (4.20-5.40); WHITE BLOOD CELL COUNT 10.9 /CUMM (4.8-10.8)
[2017-09-16 10:37] LABS: HEMATOCRIT 32.7 % (37-47)
--- NOTE | 2017-09-16 12:46 | PN- Att Addend ---
Attending Addendum Attending Brief Note Patient seen and examined. Plan of care discussed with the medical team, emergency room physician and the patient. Patient's at the bedside. Available lab work and radiology test reports were reviewed. Patient appears much better and her fever has decreased. She continues to have mild abdominal pain in the suprapubic and left lower quadrant area abdomen. Exam: General: Patient awake alert oriented without any distress; CVS: S1 plus S2 without any murmur or gallops Chest: Few scattered crepitation without any wheeze. There is no respiratory distress. 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 Waiting for biopsy from D&C. Other tumor such as lymphoma sarcoma or carcinoid will need to be excluded as well; case discussed with Dr. Carmen in person. If patient's and admitted biopsy-positive she will need to go to [place] for staging laparoscopy. A biopsy is negative then she will need exploratory laparoscopy which can be done here * Fever- likely UTI or pyelonephritis with bacteremia with gram-negative rods ; deferential includes tumor fever; her chest x-ray was negative for pneumonia * Colonic polyp found on colonoscopy awaiting pathology Plan * Continue IV ceftriaxone * Await final culture reports * Repeat CBC tomorrow * Treat fever with Tylenol or Motrin * Continue morphine for pain * Continue Nicotine patch * Await pathology reports Current Medications Sig/Leonel Start time Last Medication Dose Route Stop Time Status Admin Acetaminophen 650 MG Q6P PRN 09/14 2230 AC 09/15 PO 1124 Ceftriaxone Sodium 1,000 MG DAILY 09/15 1041 AC 09/16 IV 0848 Dicyclomine HCl 20 MG 4 TIMES/DAY PRN 09/13 1745 AC PO Fentanyl Citrate 100 MCG .STK-MED ONE 09/15 1320 DC IM 09/15 1321 Ibuprofen 600 MG ONCE ONE 09/15 1315 DC PO 09/15 1316 Ibuprofen 600 MG Q6P PRN 09/13 1345 AC 09/15 PO 0927 Midazolam HCl 2 MG .STK-MED ONE 09/15 1321 DC IM 09/15 1322 Morphine Sulfate 2 MG Q4P PRN 09/13 191 AC 09/14 IV 1643 Sodium Chloride 1,000 ML Q20H 09/15 0000 DC 09/14 IV 09/15 1958 2316 Laboratory Tests 09/16/17 0715: CBC w Diff MAN DIFF ORDERED, RBC 3.85 L, MCV 85.0, MCH 28.6, MCHC 33.7, RDW 14.5, MPV 9.9, Gran % 89.3 H, Lymphocytes % 5.8 L, Monocytes % 4.9, Eosinophils % 0, Basophils % 0, Absolute Granulocytes 9.8 H, Segmented Neutrophils 71, Band Neutrophils 20 H, Absolute Lymphocytes 0.6 L, Lymphocytes 5 L, Monocytes 4, Absolute Monocytes 0.5, Absolute Eosinophils 0, Absolute Basophils 0, Platelet Estimate VERIFIED BY SMEAR, Polychromasia 1+ 09/15/17 1057: Urinalysis LIGHT H, Urine Color BLDY H, Urine Clarity CLDY H, Urine pH 6.0, Ur Specific [place] 1.025, Urine Protein 100 H, Urine Ketones 15 H, Urine Nitrite POS H, Urine Bilirubin [email or web address]@[email or web address], Urine Urobilinogen 4.0 H, Ur Leukocyte Esterase MOD H, Ur Microscopic SEDIMENT EXAMINED, Urine RBC >75 H, Urine WBC > 75 H, Ur Epithelial Cells MOD H, Urine Bacteria MOD H, Urine Mucus FEW, Micro UA Comment MORE INFO: H, Urine Hemoglobin LARGE H, Urine Glucose NEG 09/15/17 0916: Lactic Acid 1.1 09/15/17 0705: CBC w Diff NO MAN DIFF REQ, RBC 4.42, MCV 85.9, MCH 28.2, MCHC 32.8 L, RDW 15.0 H, MPV 10.0, Gran % 91.8 H, Lymphocytes % 6.6 L, Monocytes % 1.3 L, Eosinophils % 0.2, Basophils % 0.1, Absolute Granulocytes 17.4 H, Absolute Lymphocytes 1.2, Absolute Monocytes 0.3, Absolute Eosinophils 0, Absolute Basophils 0 09/14/17 0745: Anion Gap 11, Estimated GFR > 60, BUN/Creatinine Ratio 8.8, CBC w Diff NO MAN DIFF REQ, RBC 4.28, MCV 85.5, MCH 28.3, MCHC 33.0, RDW 15.0 H, MPV 9.3, Gran % 75.2, Lymphocytes % 20.8, Monocytes % 3.8, Eosinophils % 0.1, Basophils % 0.1, Absolute Granulocytes 7.1 H, Absolute Lymphocytes 2.0, Absolute Monocytes 0.4, Absolute Eosinophils 0, Absolute Basophils 0 09/14/17 0600: Carcinoembryonic Ag 2.0, CA 125 Antigen 126 Microbiology 09/16 0906 BLOOD: Blood Culture - RECD 09/16 0850 BLOOD: Blood Culture - RECD 09/15 1057 URINE ROUT: Urine Culture - RES 09/14 2214 BLOOD: Blood Culture - CAN Cancelled: Cancelled via OE: Per MD Decision 09/14 2214 BLOOD: Blood Culture - CAN Cancelled: Cancelled via OE: Per MD Decision 09/14 165 BLOOD: Blood Culture - RES ANAEROBIC GRAM NEGATIVE CLAIRE 09/14 125 BLOOD: Blood Culture - RES ANAEROBIC GRAM NEGATIVE CLAIRE Vital Signs Date Time Temp Pulse Resp B/P B/P Pulse O2 O2 Flow FiO2 Mean Ox Delivery Rate 09/16 0621 97.8 72 20 130/80 98 Room Air 09/15 2226 97.9 88 14 124/78 97 Room Air 09/15 1547 97.4 71 18 126/78 96 Room Air 09/15 1317 100.4 Intake & Output 09/16 1600 09/16 0800 09/16 0000 Intake Total 480 600 Output Total 300 Balance 480 300 Intake, Oral 480 600 Output, Urine 300
[2017-09-16 14:39] VITALS: BP 130/75
--- NOTE | 2017-09-16 15:16 | Cons- Infect Disease ---
General Information and HPI Consulting Request Date of Consult: 09/16/17 Requested By: Jeffrey STAPLES,Shade Reason for Consult: Positive blood cultures for anaerobic gram-negative fahad Source of Information: patient, family, old records History of Present Illness: This is a 42-year-old woman with a history of menorrhagia, status post D&C nearly 7 years prior to admission revealing an endometrial polyp with complex hyperplasia without atypia, with no follow-up reported, admitted on September 13 with a 10 day history of lower abdominal pain, primarily in the left lower quadrant, associated with constipation, but without nausea, vomiting, fevers or chills. On admission she was afebrile. Laboratory data revealed a white blood cell count of 9000, BUN/creatinine 9 and 0.8, with normal liver enzymes. Urinalysis 25-50 RBC/50-[address] of the abdomen and pelvis revealed a mildly prominent appendix with an adjacent low-attenuation complex mass, measuring 4.3 x 3.6 x 4.3 cm, and an enlarged uterus. A transvaginal ultrasound revealed an abnormal diffuse thickening of the endometrial stripe with a question of an endometrial mass in the lower uterine segment; 2 large masses in the pelvis, one located posterior to the lower uterine segment and one in the right lower quadrant. She underwent a colonoscopy on September 14, which revealed 1 small cecal polyp, and a hysteroscopy on September 15, with the uterus unable to be visualized, but with a biopsy obtained. She developed a low-grade fever to 100.8 on September 13 and has been febrile since. Her white blood cell count, initially normal, increased to 19,000 on September 15, and has decreased today, but with increased bands. On September 15 blood cultures 2 were reported positive for gram-negative rods, which have been identified as Bacteroides fragilis. She notes some improvement in her lower abdominal pain since admission and has no other complaints. 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 Home Services at Home: NONE Smoking Status: Current Everyday Smoker (1/2 pack per day x 30 years) ETOH Use: occasional use Illicit Drug Use: denies illicit drug use Employment History Employment: Employed Review of Systems Review of Systems GI: Reports: constipation. All Other Systems: Reviewed and Negative Exam & Diagnostic Data Last 24 Hrs of Vital Signs/I&O Vital Signs Date Time Temp Pulse Resp B/P B/P Pulse O2 O2 Flow FiO2 Mean Ox Delivery Rate 09/16 1439 97.9 75 20 130/75 98 Room Air 09/16 0621 97.8 72 20 130/80 98 Room Air 09/15 2226 97.9 88 14 124/78 97 Room Air 09/15 1547 97.4 71 18 126/78 96 Room Air Intake & Output 09/16 1600 09/16 0800 09/16 0000 Intake Total 800 480 600 Output Total 300 Balance 800 480 300 Intake, Oral 800 480 600 Output, Urine 300 Physical Exam Other Physical Findings: She is awake and alert in no acute distress. T-max 101. Skin reveals a flushed face. HEENT exam is negative. Neck is supple with no adenopathy. Lungs are clear. Heart regular rhythm with no murmur. Abdomen is obese, soft, tender on palpation of the lower abdomen and left lower quadrant, with no guarding or rebound, with positive bowel sounds. Back no CVA tenderness. Extremities no cyanosis, clubbing or edema. Neuro is without focality. Last 24 Hours of Lab Results: Laboratory Tests 09/16 0715 Hematology CBC w Diff MAN DIFF ORDERED WBC (4.8 - 10.8 /CUMM) 10.9 H RBC (4.20 - 5.40 /CUMM) 3.85 L Hgb (12.0 - 16.0 G/DL) 11.0 L Hct (37 - 47 %) 32.7 L MCV (81.0 - 99.0 FL) 85.0 MCH (27.0 - 31.0 PG) 28.6 MCHC (33.0 - 37.0 G/DL) 33.7 RDW (11.5 - 14.5 %) 14.5 Plt Count (130 - 400 /CUMM) 247 MPV (7.4 - 10.4 FL) 9.9 Gran % (42.2 - 75.2 %) 89.3 H Lymphocytes % (20.5 - 51.1 %) 5.8 L Monocytes % (1.7 - 9.3 %) 4.9 Eosinophils % (0 - 5 %) 0 Basophils % (0.0 - 2.0 %) 0 Absolute Granulocytes (1.4 - 6.5 /CUMM) 9.8 H Segmented Neutrophils (42.2 - 75.2 %) 71 Band Neutrophils (0.0 - 5.0 %) 20 H Absolute Lymphocytes (1.2 - 3.4 /CUMM) 0.6 L Lymphocytes (20.5 - 51.1 %) 5 L Monocytes (1.7 - 9.3 %) 4 Absolute Monocytes (0.10 - 0.60 /CUMM) 0.5 Absolute Eosinophils (0.0 - 0.7 /CUMM) 0 Absolute Basophils (0.0 - 0.2 /CUMM) 0 Platelet Estimate (ADEQUATE) VERIFIED BY SMEAR Polychromasia 1+ Last 24 Hours of Morgan Results: Blood cultures September 14 positive for Bacteroides fragilis Urine culture September 15 negative Blood cultures September 16 pending Diagnostic Data Recent Imaging Findings: CT of the abdomen and pelvis September 13 revealed a mildly prominent appendix with an adjacent low-attenuation complex mass, measuring 4.3 x 3.6 x 4.3 cm, an omental mass, a mass posterior to the lower uterine segment and an enlarged uterus. A transvaginal ultrasound September 13 revealed an abnormal diffuse thickening of the endometrial stripe with a question of an endometrial mass in the lower uterine segment; 2 large masses in the pelvis, one located posterior to the lower uterine segment and one in the right lower quadrant. Chest x-ray September 14 no acute process Assessment/Plan Assessment/Plan Impression: This is a 42-year-old woman with a history of menorrhagia, status post D&C nearly 7 years prior to admission revealing an endometrial polyp with complex hyperplasia without atypia, with no follow-up, admitted on September 13 with a 10 day history of lower abdominal pain, found to be afebrile with a normal white blood cell count and with a CT of the abdomen and pelvis revealing an omental and several pelvic masses as well as an enlarged uterus, status post colonoscopy and hysteroscopy, with an elevated CA 125 and with blood cultures 2 found to be positive for Bacteroides fragilis. Her clinical picture is suggestive of endometrial cancer, with an abnormal endometrial curettage over 7 years prior to admission, an enlarged uterus and an elevated CA 125. The positive blood cultures for Bacteroides fragilis suggest perforation, presumably related to the endometrial cancer, with no evidence of any significant GI pathology on her recent colonoscopy. The omental and pelvic masses are worrisome for metastatic disease, and the biopsy from her recent hysteroscopy is pending. Her antibiotics can be adjusted, primarily to cover the Bacteroides fragilis, but would maintain coverage against enteric gram- negative rods as well. Suggestion: 1. Follow-up the biopsies from her recent hysteroscopy and colonoscopy 2. Further management based on above 3. Discontinue Ceftriaxone 4. Begin Unasyn 3 g IV every 6 hours Consult Acknowledgment - Thank you for your consult request.
[2017-09-16 22:29] VITALS: BP 160/80
[2017-09-17 06:31] VITALS: BP 138/86
--- NOTE | 2017-09-17 07:29 | PN- Housestaff ---
Subjective Follow-up For: Pelvic mass Subjective: Seen and examined. Resting comfortably. reports mild lower abd tenderness Review of Systems Constitutional: Reports: see HPI. Objective Last 24 Hrs of Vital Signs/I&O Vital Signs Date Time Temp Pulse Resp B/P B/P Pulse O2 O2 Flow FiO2 Mean Ox Delivery Rate 09/17 0631 98.7 80 20 138/86 98 Room Air 09/17 0000 Room Air 09/16 2229 98.9 84 20 160/80 97 Room Air 09/16 1439 97.9 75 20 130/75 98 Room Air Intake & Output 09/17 1600 09/17 0800 09/17 0000 Intake Total 240 240 Output Total Balance 240 240 Intake, Oral 240 240 Number 0 0 Bowel Movements Patient 240 lb Weight Physical Exam General Appearance: Alert, Oriented X3, Cooperative Cardiovascular: Normal S1, Normal S2 Lungs: Clear to Auscultation, Normal Air Movement Abdomen: lower abd tendeness Neurological: Normal Speech Current Medications: Current Medications Sig/Leonel Start time Last Medication Dose Route Stop Time Status Admin Acetaminophen 650 MG Q6P PRN 09/14 2230 09/15 PO 1124 Ampicillin Sodium/ 3,000 MG Q6 09/16 1800 AC 09/17 Sulbactam Sodium IV 1249 Sodium Chloride 100 ML Ceftriaxone Sodium 1,000 MG DAILY 09/15 1041 DC 09/16 IV 0848 Dicyclomine HCl 20 MG 4 TIMES/DAY PRN 09/13 1745 AC PO Ibuprofen 600 MG Q6P PRN 09/13 1345 AC 09/16 PO 2153 Morphine Sulfate 2 MG Q4P PRN 09/13 1915 09/14 IV 1643 Patient Medication 1 ED ONE ONE 09/16 1545 TX 09/16 Teaching ED 09/16 1546 1734 Last 24 Hrs of Lab/Morgan Results Last 24 Hrs of Labs/Mics: Laboratory Tests 09/17/17 0745: CBC w Diff NO MAN DIFF REQ, RBC 3.71 L, MCV 85.2, MCH 28.3, MCHC 33.3, RDW 14.9 H, MPV 9.5, Gran % 80.5 H, Lymphocytes % 16.7 L, Monocytes % 2.3, Eosinophils % 0.3, Basophils % 0.2, Absolute Granulocytes 9.5 H, Absolute Lymphocytes 2.0, Absolute Monocytes 0.3, Absolute Eosinophils 0, Absolute Basophils 0 Assessment/Plan Assessment: She is being Lower abdominal pain and pelvic mass: CT of the abdomen and pelvis revealed a mildly prominent appendix with an adjacent low-attenuation complex mass, measuring 4.3 x 3.6 x 4.3 cm, and an enlarged uterus. A transvaginal ultrasound revealed an abnormal diffuse thickening of the endometrial stripe with a question of an endometrial mass in the lower uterine segment; 2 large masses in the pelvis, one located posterior to the lower uterine segment and one in the right lower quadrant. She underwent a colonoscopy on September 14, which revealed 1 small cecal polyp (negative for cancer), and a hysteroscopy on September 15, with the uterus unable to be visualized, but with a biopsy obtained (pending results). Deferentials included endometrial carcinoma, endometrial fibroid, ovarian mass versus appendiceal mucocyst. Waiting for biopsy from D&C. Other tumor such as lymphoma sarcoma or carcinoid will need to be excluded as well; case discussed with Dr. Carmen. If patient's and admitted biopsy-positive she will need to go to [place] for staging laparoscopy. A biopsy is negative then she will need exploratory laparoscopy Fever-Patient had started spiking low-grade fevers which was initially thought to be tumor fever however workup was done to rule out any infectious causes. CXR did not show any acute cardiopulmonary process. Blood cultures were sent. Patient started having elevated white count and later blood cultures grew gram- negative rods and patient was started on IV ceftriaxone. UA was also positive for leukoesterase and nitrates urine culture were sent. 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 The final blood cultures are positive for anaerobic rods and patient is switched to unasyn. with suspected source being QUARTER DOPER Problem List: 1. Abdominal pain 2. Abdominal mass Pain Ratin Pain Location: lower abd Pain Goal: Pain 4 or less Pain Plan: prn Tomorrow's Labs & Rationales: cbc
[2017-09-17 08:56] LABS: ABSOLUTE BASOPHIL COUNT 0 /CUMM (0.0-0.2); ABSOLUTE EOSINOPHIL COUNT 0 /CUMM (0.0-0.7); ABSOLUTE GRANULOCYTE CT 9.5 /CUMM (1.4-6.5); ABSOLUTE MONOCYTE COUNT 0.3 /CUMM (0.10-0.60); BASOPHIL % 0.2 % (0.0-2.0); EOSINOPHIL % 0.3 % (0-5); GRANULOCYTE % 80.5 % (42.2-75.2); HEMATOCRIT 31.6 % (37-47); MEAN CORPUSCULAR HGB 28.3 PG (27.0-31.0); MEAN CORPUSCULAR HGB CONC 33.3 G/DL (33.0-37.0); MEAN CORPUSCULAR VOLUME 85.2 FL (81.0-99.0); MEAN PLATELET VOLUME 9.5 FL (7.4-10.4); PLATELET COUNT 293 /CUMM (130-400); RBC DISTRIBUTION WIDTH 14.9 % (11.5-14.5); RED BLOOD CELL CT 3.71 /CUMM (4.20-5.40); WHITE BLOOD CELL COUNT 11.8 /CUMM (4.8-10.8)
--- NOTE | 2017-09-17 10:26 | Discharge Summary ---
Visit Information Visit Dates Admission Date: 09/13/17 Discharge Date: 09/17/2017 Hospital Course Course Attending Physician: Jeffrey STAPLES,Shade Primary Care Physician: Deep STAPLES,Tomas Bonilla Hospital Course: This is a 42-year-old woman with a history of menorrhagia, status post D&C nearly 7 years prior to admission revealing an endometrial polyp with complex hyperplasia without atypia, with no follow-up reported, admitted on September 13 with a 10 day history of lower abdominal pain, primarily in the left lower quadrant, associated with constipation, but without nausea, vomiting, fevers or chills. On admission she was afebrile. Laboratory data revealed a white blood cell count of 9000, BUN/creatinine 9 and 0.8, with normal liver enzymes. Urinalysis 25-50 RBC/50-75 WBCs. She developed a low-grade fever to 100.8 on September 13 and has been febrile since. Her white blood cell count, initially normal, increased to 19,000 on September 15, and has decreased today, but with increased bands. On September 15 blood cultures 2 were reported positive for gram-negative rods, which have been identified as Bacteroides fragilis. She notes some improvement in her lower abdominal pain since admission and has no other complaints. She was seen and treated for; Lower abdominal pain and pelvic mass: CT of the abdomen and pelvis revealed a mildly prominent appendix with an adjacent low-attenuation complex mass, measuring 4.3 x 3.6 x 4.3 cm, and an enlarged uterus. A transvaginal ultrasound revealed an abnormal diffuse thickening of the endometrial stripe with a question of an endometrial mass in the lower uterine segment; 2 large masses in the pelvis, one located posterior to the lower uterine segment and one in the right lower quadrant. She underwent a colonoscopy on September 14, which revealed 1 small cecal polyp (negative for cancer), and a hysteroscopy on September 15, with the uterus unable to be visualized, but with a biopsy obtained (pending results). Deferentials included endometrial carcinoma, endometrial fibroid, ovarian mass versus appendiceal mucocyst. Waiting for biopsy from D&C. Other tumor such as lymphoma sarcoma or carcinoid will need to be excluded as well; case discussed with Dr. Carmen. If patient's and admitted biopsy-positive she will need to go to [place] for staging laparoscopy. A biopsy is negative then she will need exploratory laparoscopy Fever-Patient had started spiking low-grade fevers which was initially thought to be tumor fever however workup was done to rule out any infectious causes. CXR did not show any acute cardiopulmonary process. Blood cultures were sent. Patient started having elevated white count and later blood cultures grew gram- negative rods and patient was started on IV ceftriaxone. UA was also positive for leukoesterase and nitrates urine culture were sent. 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 The final blood cultures are positive for anaerobic rods and patient is switched to unasyn. Allergies: Coded Allergies: oxycodone (NAUSEA 09/13/17) Disposition Summary Disposition Principal Diagnosis: Lower abdominal pain and pelvic mass: Additional Diagnosis: as above Discharge Disposition: other general hospital Discharge Instructions General Discharge Information Code Status: Full Code Patient's Diet: regular Patient's Activity: as tolerated Follow-Up Instructions/Appts: Patient is being tarnsfered to [place] for further care. Medications at Discharge Discharge Medications: Start taking the following new medications: [Bentyl] 20 MG TAB 1 Tablet ORAL 4 TIMES A DAY as needed for ABDOMINAL PAIN Qty = 20 No Refills Comments: NOT GIVEN THIS ADMISSION Morphine Sulfate (Morphine Sulfate) 4 MG/ML VIAL 2 Milligram INTRAVEN EVERY 4 HOURS NEEDED as needed for PAIN SCALE 7-10 ( SEVERE) Qty = 10 No Refills Comments: Last Taken:09/14/17 Time:4:43P.M Acetaminophen (Tylenol) 325 MG TABLET 1-2 Tablet ORAL EVERY SIX HOURS NEEDED as needed for FEVER > 101 Qty = 10 No Refills Comments: Last Taken:09/15/17 Time:11:30A.M Ibuprofen (Ibuprofen) 600 MG TABLET 1 Tablet ORAL THREE TIMES DAILY as needed for PAIN SCALE 4-6 (MODERATE) Qty = 30 No Refills Instructions: with food Comments: Last Taken:09/16/17 Time:9:53P.M Ampicillin Sodium/Sulbactam Na (Unasyn 3 Gm Vial) 3 GRAM VIAL 1 Vial INTRAVEN EVERY SIX HOURS Qty = 40 No Refills Comments: Last Taken:09/17/17 Time:1245P.M Copies To: Deep STAPLES,Tomas Stack MD Review Statement Documenting Attending: Jeffrey STAPLES,Shade
[2017-09-17] MEDS ORDERED: IBUPROFEN600 M1 PO (10:36)
[2017-09-17] MEDS ORDERED: MORPHINE SU4 MG/1 M2 IV (10:36)
[2017-09-17] MEDS ORDERED: Bentyl PO (10:36)
[2017-09-17] MEDS ORDERED: TYLENOL325 M1 PO (10:36)
[2017-09-17] MEDS ORDERED: UNASYN 3 GM VIAL3 GM IV (10:36)
--- NOTE | 2017-09-17 10:36 | Patient Discharge Instructions ---
Acute Coronary Syndrome Inclusion Criteria At DC or during hospital stay patient has or had the following: ACS DIAGNOSIS No Discharge Core Measures Meds if any: Prescribed or Continued at Discharge Meds if any: NOT Prescribed or Continued at Discharge Congestive Heart Failure Inclusion Criteria At DC or during hospital stay patient has or had the following: CHF DIAGNOSIS No Discharge Core Measures Meds if any: Prescribed or Continued at Discharge Meds if any: NOT Prescribed or Continued at Discharge Cerebrovascular accident Inclusion Criteria At DC or during hospital stay patient has or had the following: CVA/TIA Diagnosis No Discharge Core Measures Meds if any: Prescribed or Continued at Discharge Meds if any: NOT Prescribed or Continued at Discharge Venous thromboembolism Inclusion Criteria VTE Diagnosis No VTE Type NONE VTE Confirmed by (Test) NONE Discharge Core Measures - Per Current guidelines, there needs to be overlap - treatment for the first 5 days of Warfarin therapy. - If discharged on Warfarin prior to 5 days of - overlap therapy, the patient will need to be - assessed for post discharge needs including - *Post discharge parental anticoagulation - *Warfarin and/or parental anticoagulation education - *Follow up date to check INR post discharge At least 5 days overlap therapy as Inpatient No Meds if any: Prescribed or Continued at Discharge Note: Overlap Therapy is Warfarin and Anticoagulant Meds if any: NOT Prescribed or Continued at Discharge
--- NOTE | 2017-09-17 10:49 | PN- Att Addend ---
Attending Addendum Attending Brief Note Patient seen and examined. Plan of care discussed with the medical team, emergency room physician and the patient. Patient's at the bedside. Available lab work and radiology test reports were reviewed. Patient appears much better and her fever has decreased. She continues to have mild crampy abdominal pain in the suprapubic and left lower quadrant area abdomen. Exam: General: Patient awake alert oriented without any distress; CVS: S1 plus S2 without any murmur or gallops Chest: Few scattered crepitation without any wheeze. There is no respiratory distress. Abdomen: Soft obese mild tenderness in left lower quadrant suprapubic area, bowel sound present, no guarding or rebound [employer]PER[employer]OR [employer]: Awake alert oriented without any focal neuro deficit and follows commands appropriately Extremities: No edema; no clubbing or cyanosis noted Assessment * Lower abdominal pain and pelvic mass with enhanced uterine strip- deferential included endometrial carcinoma, endometrial fibroid, ovarian mass versus appendiceal mucocyst or tumor. Waiting for biopsy from D&C. Other tumor such as lymphoma sarcoma or carcinoid will need to be excluded as well; case discussed with Dr. Carmen and Dr. Trevino. If patient's and admitted biopsy- positive she will need to go to [place] for staging laparoscopy. if biopsy is negative then she will need exploratory laparoscopy which can be done here * Fever- with bacteremia due to Bacteroides- currently stable on Unasyn * Colonic polyp found on colonoscopy pathology report negative for cancer Plan * Continue IV Unasyn * Continue morphine for pain * Continue Nicotine patch * Await pathology reports and plan for disposition. Current Medications Sig/Leonel Start time Last Medication Dose Route Stop Time Status Admin Acetaminophen 650 MG Q6P PRN 09/14 2230 AC 09/15 PO 1124 Ampicillin Sodium/ 3,000 MG Q6 09/16 1800 AC 09/17 Sulbactam Sodium IV 0516 Sodium Chloride 100 ML Ceftriaxone Sodium 1,000 MG DAILY 09/15 1041 DC 09/16 IV 0848 Dicyclomine HCl 20 MG 4 TIMES/DAY PRN 09/13 1745 AC PO Ibuprofen 600 MG Q6P PRN 09/13 1345 AC 09/16 PO 2153 Morphine Sulfate 2 MG Q4P PRN 09/13 1915 AC 09/14 IV 1643 Patient Medication 1 ED ONE ONE 09/16 1545 DC 09/16 Teaching ED 09/16 1546 1734 Laboratory Tests 09/17/17 0745: CBC w Diff NO MAN DIFF REQ, RBC 3.71 L, MCV 85.2, MCH 28.3, MCHC 33.3, RDW 14.9 H, MPV 9.5, Gran % 80.5 H, Lymphocytes % 16.7 L, Monocytes % 2.3, Eosinophils % 0.3, Basophils % 0.2, Absolute Granulocytes 9.5 H, Absolute Lymphocytes 2.0, Absolute Monocytes 0.3, Absolute Eosinophils 0, Absolute Basophils 0 09/16/17 0715: CBC w Diff MAN DIFF ORDERED, RBC 3.85 L, MCV 85.0, MCH 28.6, MCHC 33.7, RDW 14.5, MPV 9.9, Gran % 89.3 H, Lymphocytes % 5.8 L, Monocytes % 4.9, Eosinophils % 0, Basophils % 0, Absolute Granulocytes 9.8 H, Segmented Neutrophils 71, Band Neutrophils 20 H, Absolute Lymphocytes 0.6 L, Lymphocytes 5 L, Monocytes 4, Absolute Monocytes 0.5, Absolute Eosinophils 0, Absolute Basophils 0, Platelet Estimate VERIFIED BY SMEAR, Polychromasia 1+ 09/15/17 1057: Urinalysis LIGHT H, Urine Color BLDY H, Urine Clarity CLDY H, Urine pH 6.0, Ur Specific Upatoi 1.025, Urine Protein 100 H, Urine Ketones 15 H, Urine Nitrite POS H, Urine Bilirubin NEG@ICTO, Urine Urobilinogen 4.0 H, Ur Leukocyte Esterase MOD H, Ur Microscopic SEDIMENT EXAMINED, Urine RBC >75 H, Urine WBC > 75 H, Ur Epithelial Cells MOD H, Urine Bacteria MOD H, Urine Mucus FEW, Micro UA Comment MORE INFO: H, Urine Hemoglobin LARGE H, Urine Glucose NEG 09/15/17 0916: Lactic Acid 1.1 09/15/17 0705: CBC w Diff NO MAN DIFF REQ, RBC 4.42, MCV 85.9, MCH 28.2, MCHC 32.8 L, RDW 15.0 H, MPV 10.0, Gran % 91.8 H, Lymphocytes % 6.6 L, Monocytes % 1.3 L, Eosinophils % 0.2, Basophils % 0.1, Absolute Granulocytes 17.4 H, Absolute Lymphocytes 1.2, Absolute Monocytes 0.3, Absolute Eosinophils 0, Absolute Basophils 0 Microbiology 05/24 0906 BLOOD: Blood Culture - RECD 09/16 0850 BLOOD: Blood Culture - RECD 09/15 1057 URINE ROUT: Urine Culture - RES 09/14 2214 BLOOD: Blood Culture - CAN Cancelled: Cancelled via OE: Per Decision 09/14 2214 BLOOD: Blood Culture - CAN Cancelled: Cancelled via OE: Per Decision 09/14 1654 BLOOD: Blood Culture - COMP BACTEROIDES PROB FRAGILIS 09/14 125 BLOOD: Blood Culture - COMP BACTEROIDES PROB FRAGILIS Vital Signs Date Time Temp Pulse Resp B/P B/P Pulse O2 O2 Flow FiO2 Mean Ox Delivery Rate 09/17 0631 98.7 80 20 138/86 98 Room Air 09/17 0000 Room Air 09/16 2228 98.9 84 20 160/80 97 Room Air 09/16 1439 97.9 75 20 130/75 98 Room Air Intake & Output 09/17 1600 09/17 0800 09/17 0000 Intake Total 240 240 Output Total Balance 240 240 Intake, Oral 240 240 Number 0 0 Bowel Movements Patient 240 lb Weight
--- NOTE | 2017-09-17 11:00 | PN- Infect Dx ---
Subjective Subjective: Afebrile. She notes minimal discomfort in the lower abdomen. Objective Last 24 Hrs of Vital Signs/I&O Vital Signs Date Time Temp Pulse Resp B/P B/P Pulse O2 O2 Flow FiO2 Mean Ox Delivery Rate 09/17 0631 98.7 80 20 138/86 98 Room Air 09/17 0000 Room Air 09/16 2229 98.9 84 20 160/80 97 Room Air 09/16 1439 97.9 75 20 130/75 98 Room Air Intake & Output 09/17 1600 09/17 0800 09/17 0000 Intake Total 240 240 Output Total Balance 240 240 Intake, Oral 240 240 Number 0 0 Bowel Movements Patient 240 lb Weight Physical Exam Other Physical Findings: She appears anxious but in no acute distress Lungs are clear Heart regular rhythm with no murmur Abdomen is obese, soft, minimally tender on palpation over the lower abdomen and left lower quadrant, with no guarding or rebound, positive bowel sounds Back no CVA tenderness Results Last 24 Hours of Lab Results: Laboratory Tests 09/17 0745 Hematology CBC w Diff NO MAN DIFF REQ WBC (4.8 - 10.8 /CUMM) 11.8 H RBC (4.20 - 5.40 /CUMM) 3.71 L Hgb (12.0 - 16.0 G/DL) 10.5 L Hct (37 - 47 %) 31.6 L MCV (81.0 - 99.0 FL) 85.2 MCH (27.0 - 31.0 PG) 28.3 MCHC (33.0 - 37.0 G/DL) 33.3 RDW (11.5 - 14.5 %) 14.9 H Plt Count (130 - 400 /CUMM) 293 MPV (7.4 - 10.4 FL) 9.5 Gran % (42.2 - 75.2 %) 80.5 H Lymphocytes % (20.5 - 51.1 %) 16.7 L Monocytes % (1.7 - 9.3 %) 2.3 Eosinophils % (0 - 5 %) 0.3 Basophils % (0.0 - 2.0 %) 0.2 Absolute Granulocytes (1.4 - 6.5 /CUMM) 9.5 H Absolute Lymphocytes (1.2 - 3.4 /CUMM) 2.0 Absolute Monocytes (0.10 - 0.60 /CUMM) 0.3 Absolute Eosinophils (0.0 - 0.7 /CUMM) 0 Absolute Basophils (0.0 - 0.2 /CUMM) 0 Last 24 Hours of [place] Results: Blood cultures September 16 negative Urine culture September 15 negative Assessment/Plan ID Impression: Stable, with temperatures normal and white blood cell count minimally elevated, with no further bands reported, now on Unasyn Day 1 of treatment for Bacteroides fragilis bacteremia, 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 The biopsy from her recent hysteroscopy is pending and will determine further management, with transfer to [place] recommended by GEOTHERMAL OPERATIONS MANAGER if it is positive for malignancy. Suggestion: 1. Follow-up endometrial biopsy 2. Further management based on above 3. Continue Unasyn
--- NOTE | 2017-09-17 13:58 | Operative Report ---
Operative/Inv Procedure Report Surgery Date: 09/15/17 Name of Procedure: Examination under anesthesia, fractional D&C Pre-Operative Diagnosis: Abnormal uterine bleeding Post-Operative Diagnosis: Abnormal uterine bleeding Estimated Blood Loss: 50ml to 100ml Surgeon/Object Oriented Developer: Lobito Carmen MD Anesthesia: moderate sedation Specimens: ECC, EMC Complications: None Condition: Good Operative Indication: Abnormal uterine bleeding and enlarged uterus Operative/Procedure Note Note: Patient was taken to the operating room sedated prepped and draped in usual sterile fashion after a time out while the patient was awake examination under anesthesia revealed a small cervix, normal rectovaginal septum normal lower uterine segment could not reach adnexal or fundus of uterus secondary to obesity the anterior lip of the cervix was grasped with a single-toothed tenaculum the endocervical canal was dilated with Hanks dilators a fair amount of bleeding was encountered and endocervical curettage was performed the uterus was sounded to 8 cm and an endometrial curettage was performed with gritty material returned was decided not to do a hysteroscopy at this point. Single-tooth tenaculum was removed patient was awakened and moved to recovery room in good condition. Findings: Finding as noted above Discharge Disposition: PACU CC: Jeffrey STAPLES,Shade
--- NOTE | 2017-09-17 14:03 | Cons- OBGYN ---
General Information and HPI Consulting Request Date of Consult: 09/17/17 Requested By: Jeffrey STAPLES,Shade Reason for Consult: Disposition Source of Information: patient, old records Exam Limitations: no limitations History of Present Illness: Patient is a 42-year-old obese white female admitted to the medical service for pelvic pain irregular vaginal bleeding shortly after admission patient spiked a fever and blood cultures were positive for Bacteroides she was started on antibiotics. Her imaging showed a 4 cm calcified mass near her appendix a 15 cm uterus with possible endometrial mass and a 2-3 cm mass in the cul-de-sac. She underwent a colonoscopy which was negative for invasive disease. Followed by a fractional D&C by myself on Wednesday pathology returned today adenocarcinoma. Allergies/Medications Allergies: Coded Allergies: oxycodone (NAUSEA 09/13/17) Home Med List: Acetaminophen (Tylenol) 325 MG TABLET 1-2 TAB PO Q6P PRN FEVER > 101 Ampicillin Sodium/Sulbactam Na (Unasyn 3 Gm Vial) 3 GRAM VIAL 1 Vial IV Q6 BACTEREMIA [Bentyl] 20 MG TAB 1 TAB PO 4 TIMES/DAY PRN ABDOMINAL PAIN Ibuprofen 600 MG TABLET 1 TAB PO TID PRN PAIN SCALE 4-6 (MODERATE) with food Morphine Sulfate 4 MG/ML VIAL 2 MG IV Q4P PRN PAIN SCALE 7-10 (SEVERE) Current Medications: Current Medications Sig/Leonel Start time Last Medication Dose Route Stop Time Status Admin Acetaminophen 650 MG Q6P PRN 09/14 2230 AC 09/15 PO 1124 Ampicillin Sodium/ 3,000 MG Q6 09/16 1800 AC 09/17 Sulbactam Sodium IV 1249 Sodium Chloride 100 ML Ceftriaxone Sodium 1,000 MG DAILY 09/15 1041 DC 09/16 IV 0848 Dicyclomine HCl 20 MG 4 TIMES/DAY PRN 09/13 1745 AC PO Ibuprofen 600 MG Q6P PRN 09/13 1345 AC 09/16 PO 2153 Morphine Sulfate 2 MG Q4P PRN 09/13 1915 AC 09/14 IV 1643 Patient Medication 1 ED ONE ONE 09/16 1545 DC 09/16 Teaching ED 09/16 1546 1734 Past History Medical History Blood Transfusion Hx: No Neurological: NONE EENT: NONE Cardiovascular: NONE Respiratory: NONE Gastrointestinal: NONE Hepatic: NONE Renal: NONE Musculoskeletal: NONE Psychiatric: NONE Endocrine: NONE Blood Disorders: NONE Cancer(s): NONE 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 Home Services at Home: NONE Smoking Status: Current Everyday Smoker (1/2 pack per day x 30 years) ETOH Use: occasional use Illicit Drug Use: denies illicit drug use Employment History Employment: Employed Review of Systems Review of Systems Constitutional: Reports: malaise, weakness. Denies: chills, fever. EENTM: Denies: blurred vision, double vision, visual changes. Cardiovascular: Denies: chest pain. Respiratory: Denies: cough. GI: Reports: abdominal pain. Denies: nausea, vomiting. Exam & Diagnostic Data Vital Signs and I&O Vital Signs Date Time Temp Pulse Resp B/P B/P Pulse O2 O2 Flow FiO2 Mean Ox Delivery Rate 09/17 0631 98.7 80 20 138/86 98 Room Air 09/17 0000 Room Air 09/16 2229 98.9 84 20 160/80 97 Room Air 09/16 1439 97.9 75 20 130/75 98 Room Air Intake & Output 09/17 1600 09/17 0800 09/17 0000 09/16 1600 09/16 0809/16 0000 Intake Total 240 240 800 480 600 Output Total 300 Balance 240 240 800 480 300 Intake, Oral 240 240 800 480 600 Number 0 0 Bowel Movements Output, Urine 300 Patient 240 lb Weight Physical Exam General Appearance: alert, awake, anxious Gastrointestinal: normal bowel sounds, soft, tenderness Last 24 Hours of Labs: Laboratory Tests 09/17 0745 Hematology CBC w Diff NO MAN DIFF REQ WBC (4.8 - 10.8 /CUMM) 11.8 H RBC (4.20 - 5.40 /CUMM) 3.71 L Hgb (12.0 - 16.0 G/DL) 10.5 L Hct (37 - 47 %) 31.6 L MCV (81.0 - 99.0 FL) 85.2 MCH (27.0 - 31.0 PG) 28.3 MCHC (33.0 - 37.0 G/DL) 33.3 RDW (11.5 - 14.5 %) 14.9 H Plt Count (130 - 400 /CUMM) 293 MPV (7.4 - 10.4 FL) 9.5 Gran % (42.2 - 75.2 %) 80.5 H Lymphocytes % (20.5 - 51.1 %) 16.7 L Monocytes % (1.7 - 9.3 %) 2.3 Eosinophils % (0 - 5 %) 0.3 Basophils % (0.0 - 2.0 %) 0.2 Absolute Granulocytes (1.4 - 6.5 /CUMM) 9.5 H Absolute Lymphocytes (1.2 - 3.4 /CUMM) 2.0 Absolute Monocytes (0.10 - 0.60 /CUMM) 0.3 Absolute Eosinophils (0.0 - 0.7 /CUMM) 0 Absolute Basophils (0.0 - 0.2 /CUMM) 0 Assessment/Plan Assessment/Plan Patient with adenocarcinoma of the uterus positive blood cultures Bacteroides Plan/ transferred to [place] for definitive treatment I have arranged with Dr. Vasquez to accept the patient. Problem List: 1. Menorrhagia Consult Acknowledgment - Thank you for your consult request. Attending MD Review Statement Attending Statement Attending MD Statement: examined this patient, discuss w/resident/PA/STRIP POLISHER, discussed with family
[2017-09-17 14:43] VITALS: BP 118/60
== END 2017-09-17 15:50 | disposition short-term general hospital (02) | DRG 744 ==
LOC: ERH 05:29 → 2NA 12:39 → ERHI 12:39 → ENRESERV 14:06 → ENTRNSPT 15:12 → 2NA 15:26 → EDTRNSPTSTS 15:30 → EDTRNSPT 15:30 → CMPTRNSPT 15:43 → ENPENDDIS 09-17 14:42 → 2NA 09-17 15:50
PROVIDERS: Internal Medicine; Pediatrics; Student in an Organized Health Care Education/Training Program
PROC: 0DBH8ZX Excision of Cecum, Via Natural or Artificial Opening Endoscopic, Diagnostic (ICD-10-PCS; 2017-09-14)
PROC: 0UDB7ZX Extraction of Endometrium, Via Natural or Artificial Opening, Diagnostic (ICD-10-PCS; principal; 2017-09-15)
DX: C55 Malignant neoplasm of uterus, part unspecified (principal); R78.81 Bacteremia; C79.9 Secondary malignant neoplasm of unspecified site; K63.5 Polyp of colon; E66.9 Obesity, unspecified; Z68.37 Body mass index [BMI] 37.0-37.9, adult; Z90.49 Acquired absence of other specified parts of digestive tract; K59.00 Constipation, unspecified; N92.1 Excessive and frequent menstruation with irregular cycle; K64.8 Other hemorrhoids; F17.210 Nicotine dependence, cigarettes, uncomplicated; Z88.5 Allergy status to narcotic agent; Z98.1 Arthrodesis status
CPT/HCPCS: 2NAP; 36592; 71046; 74176; 81001; 82436; 87040; 87086; 93005; 93010; 96361; 96374; 96375; 96376; J0131; J0696; J1650; J1885; J2405